=== PATIENT | male | born 1960 | race Caucasian/White ===

== ENCOUNTER 2020-05-13 10:01 | Observation (INO) | payer OTHER, SELFPAY ==
[2020-05-13] VITALS (10 sets, daily range): BP systolic 118–179; BP diastolic 70–80; PULSE 60–68; RESP 18; TEMP 36.6–36.9; O2SAT 96–99; BMI 24.4
--- NOTE | 2020-05-13 10:22 | ED_ITS ---
HPI - Chest Pain General Chief Complaint: Chest Pain Stated Complaint: chest pain Time Seen by Provider: 05/13/20 10:22 Source: patient Mode of arrival: ambulatory Limitations: no limitations History of Present Illness HPI narrative: Intermittent chest pain for the past 6 days intermittent substernal, a few seconds. Patient with history of DVT still on xarelto. Today the pain was radiating up into the jaw complaint: chest discomfort Onset (ago): day(s) Timing of current episode: episodic Onset: during rest Pain radiation: neck and jaw/teeth Severity: mild Quality: sharp Relieving factors: rest Related Data Allergies Allergy/AdvReac Type Severity Reaction Status Date / Time No Known Allergies Allergy Verified 05/13/20 10:29 [No Known Allergies*] Review of Systems Constitutional: Constitutional: Reports no additional constitutional complaints Eyes: Eyes: Reports no additional eye complaints ENT: Denies dizziness Cardiovascular: Cardiovascular: Reports no additional cardiovascular complaints Respiratory: Respiratory: Reports as per HPI Gastrointestinal: Gastrointestinal: Reports no additional gastrointestinal complaints Musculoskeletal: Musculoskeletal: Reports no additional musculoskeletal complaints Integumentary/Breasts: Skin/Breast: Denies rash Neurologic: Reports system reviewed and no additional complaints, except as documented, Denies dizziness and Denies Sensory deficit (Neuro) Psychiatric: Psychiatric: Denies anxiety PMFSH Past Medical History Medical History DVT (deep venous thrombosis) Enlarged prostate Hypertension Social History Social History Alcohol intake: current Alcohol intake frequency: 0-2 drinks per day Smoking Status: Never smoker Use of substances other than those prescribed or required for medical reasons: No Advance Directives: No Advance Directives Information Provided: No Physical Exam Vital Signs: Vital Signs: Last Vital Signs Temp 98.4 F 05/13/20 10:26 Pulse 60 05/13/20 11:43 Resp 18 05/13/20 11:08 BP 136/77 05/13/20 11:43 Pulse Ox 98 05/13/20 10:26 Body Mass Index 24.4 Const: General: healthy appearing Nutritional Appearance: average body habitus Orientation/consciousness: oriented to person and patient oriented x3 Limitations: no limitations HENMT: Head: Yes normal to inspection Ears: external ears normal General nose exam: Normal external nose present Mouth: Normal oral and palatal mucosa present and oropharynx normal Throat: Yes posterior oropharynx normal Eyes: General: appearance normal, both eyes and all related structures Neck: Other: supple Neck: Yes normal visual inspection Chest: Chest palpation & inspection: normal inspection of the chest Resp: Auscultation: clear to auscultation bilaterally Cardio: Jugular venous distension: no JVD Rate: regular rate Rhythm: regular rhythm Heart sounds: S1 normal heart sound present and S2 normal heart sound present GI: Inspection: Yes normal to inspection Palpation (GI): Soft to palpation, nontender and No hepatosplenomegaly present Auscultation: normal bowel sounds : General: Yes no CVA tenderness Back/Spine/Pelvis: Back: no CVA tenderness Skin: General skin exam: no rashes or lesions noted Neuro: General: oriented to person and patient oriented x3 Cranial nerves: Yes CN's II-XII intact bilaterally Motor exam (neuro): 5/5 motor strength present throughout Sensory Exam: No Sensory deficit (Neuro) Extrem: General: Yes normal to inspection Psych: Appearance: grossly normal Course Course Course Narrative: Patient improved with nitro. HEART score is a 5, despite negative troponin, will repeat troponin however will likely admit for observation MDM - Chest Pain MDM Narrative Medical decision making narrative: Discussed with Hospitalist with intermediate HEART score will admit Differential Diagnosis Differential diagnosis: Likely unstable angina pectoris and chest pain Lab Data Result diagrams: 05/13/20 10:43 05/13/20 10:43 Labs: Lab Results 05/13/20 05/13/20 05/13/20 Range/Units 10:43 10:43 10:43 WBC 5.5 (4.8-10.8) X10*3/uL RBC 4.38 L (4.60-5.80) X10*6/uL Hgb 13.4 L (14.0-18.0) g/dl Hct 38.1 L (42-52) % MCV 87.0 (80-98) fL MCH 30.6 (27.0-33.0) pg MCHC 35.2 (31.0-36.0) g/dl RDW 12.3 (11.0-16.0) % Plt Count 194 (160-400) X10*3/uL MPV 9.7 (9.4-12.4) fL Immature Gran % (Auto) 0.5 H (0.0-0.4) % Neut % (Auto) 71.3 (45-73) % Lymph % (Auto) 18.8 L (20-40) % [place] % (Auto) 8.5 (2-11) % Eos % (Auto) 0.7 (0-4) % Baso % (Auto) 0.2 (0-2) % Lymph # (Auto) 1.0 L (1.2-4.9) X10*3/uL [place] # (Auto) 0.5 (0.1-1.2) X10*3/uL Eos # (Auto) 0.0 (0.0-0.4) X10*3/uL Baso # (Auto) 0.0 (0.0-0.2) X10*3/uL Abs Immat Gran (auto) 0.03 (0.00-0.03) X10*3/uL Absolute Neuts (auto) 3.9 (2.0-8.3) X10*3/uL Absolute Nucleated RBC 0.000 (0.0-0.012) X10*3/uL Nucleated RBC % (auto) 0.0 (0.0-0.2) /100WBC Sodium 138 (135-145) mmol/L Potassium 4.1 (3.3-5.1) mmol/l Chloride 106 (96-108) mmol/L Carbon Dioxide 23 (22-29) mmol/L Anion Gap 13 (12-20) BUN 16 (9-16) mg/dL Creatinine 0.89 (0.5-1.4) mg/dL Estim Creat Clear Calc 96.8 Estimated GFR > 60 Random Glucose 99 (60-115) mg/dL Calcium 9.0 (8.4-10.2) mg/dL Troponin I High Sens < 3.5 (<3.5-35.0) ng/L Imaging Data Chest x-ray: Radiologist's impression: right base atelectasis ECG Data ECG #1: Attestation: I personally reviewed and interpreted this ECG as follows: Interpretation: sinus 60, slight st depression laterally V4-V6 Discharge Plan Discharge Clinical Impression: Chest pain Patient Disposition: Admitted As Inpatient
--- NOTE | 2020-05-13 10:28 | ECG_ITS ---
Test Reason : CP Blood Pressure : / mmHG Vent. Rate : 059 BPM Atrial Rate : 059 BPM P-R Int : 210 ms QRS Dur : 098 ms QT Int : 416 ms P-R-T Axes : 063 002 031 degrees QTc Int : 411 ms Sinus bradycardia with 1st degree A-V block Possible Left atrial enlargement RSR' or QR pattern in V1 suggests right ventricular conduction delay Nonspecific ST abnormality Abnormal ECG No previous ECGs available Referred By: Bryan Marie Electronically Signed By:BLANE COVARRUBIAS MD
--- NOTE | 2020-05-13 10:29 | XR_ITS ---
EXAMINATION: XR CHEST CLINICAL INFORMATION: Chest pain COMPARISON: None TECHNIQUE: Frontal view of the chest was obtained. FINDINGS: The cardiac and mediastinal contours are normal. There is atelectasis or small infiltrate at the right lung base. The lungs are otherwise clear. There is no pleural effusion or pneumothorax. Bony structures are unremarkable. XR/XR chest 1V IMPRESSION: Atelectasis or small infiltrate at the right lung base.
[2020-05-13] MEDS: Aspirin Enteric Coated 81 MG TABLET.DR 162 MG PO (10:44)
[2020-05-13] MEDS: Nitroglycerin 0.4 MG TAB.SUBL SUBLINGUAL ×2 (10:47→11:07)
--- NOTE | 2020-05-13 10:52 | PC.NURSE ---
Patient arrives complaining of intermittent chest pain. Reports this morning pain became more constant and sharp. Patient is well appearing and ambulates with a balanced and steady gait. Respirations regular and even. Skin PWD. Left ankle swelling per patient due to prior DVT. Alert and oriented. Dr. Marie at bedside to assess. EKG obtained, IV established, and labs drawn. Patient placed on diagnostic cardiac sonographer. Medicated with ASA and Nitro. Tolerated well. will continue to monitor, awaiting results.
[2020-05-13 10:54] LABS: MANUAL DIFF FLAG NO
[2020-05-13 11:02] LABS: Basophils Percent Auto 0.2 % (0-2); Eosinophils Percent Auto 0.7 % (0-4); Hematocrit 38.1 % (42-52); Hemoglobin 13.4 g/dl (14.0-18.0); Imm Gran Abs Auto 0.03 X10*3/uL (0.00-0.03); Imm Gran Pct Auto 0.5 % (0.0-0.4); Lymphocytes Percent Auto 18.8 % (20-40); Mean Corpuscular HGB Conc 35.2 g/dl (31.0-36.0); Mean Corpuscular Hemoglobin 30.6 pg (27.0-33.0); Mean Platelet Volume 9.7 fL (9.4-12.4); Monocytes Absolute Auto 0.5 X10*3/uL (0.1-1.2); Monocytes Percent Auto 8.5 % (2-11); Neutrophils Absolute Auto 3.9 X10*3/uL (2.0-8.3); Neutrophils Percent Auto 71.3 % (45-73); Platelet Count 194 X10*3/uL (160-400); Red Blood Count 4.38 X10*6/uL (4.60-5.80); Red Cell Distribution Width 12.3 % (11.0-16.0); White Blood Count 5.5 X10*3/uL (4.8-10.8)
--- NOTE | 2020-05-13 11:06 | PC.NURSE ---
PATIENT PLACED ON ELECTROSTATIC PAINTER , EKG OBTAINED AND VIEWED BY PROVIDER . RN AT BEDSIDE PATIENT ORIENTED TO ROOM, CALL RICHARDS GIVEN
[2020-05-13 11:22] LABS: Anion Gap 13 (12-20); Blood Urea Nitrogen 16 mg/dL (9-16); Carbon Dioxide 23 mmol/L (22-29); Chloride 106 mmol/L (96-108); Creatinine Clr Calc Pharmacy 96.8; Estimated Glomerular Filt Rate > 60; Glucose Random 99 mg/dL (60-115); Potassium 4.1 mmol/l (3.3-5.1); Sodium 138 mmol/L (135-145)
[2020-05-13 11:26] LABS: Troponin-I High Sensitivity < 3.5 ng/L (<3.5-35.0)
[2020-05-13] MEDS: Nitroglycerin 2 % Oint 1 GM Packet 1 INCH TRANSDERMA (11:43)
--- NOTE | 2020-05-13 11:46 | PC.NURSE ---
Patient reporting pain is improved and now 0/10. Respirations remain regular and even. Skin PWD. Placed nitro paste. Patient aware of plan of care for admission. Awaiting further orders.
--- NOTE | 2020-05-13 12:01 | PM.IMHP ---
History of Present Illness Date of Service: 05/13/20 Chief Complaint: Chest pain 59 year male with HTN, BPH, history of DVT of left leg 7 years ago and is on Xarelto. He presents with chest pain onset a week ago. Pain is intermittent, can be sharp for few and sometime pressure. At worst 6/10. He has not been taking any meds for this. He was at work today at a [employer] when he experienced the pain and was advised to come to ED so he drove himself to the ED. In ED given Nitro x 2 with improvement and is pain free now. No associated shortness of breath, nasuea or vomitting or diaphoresis. Highly sensitive troponin is normal. ECG sinus kaveh with first degree AVB Review of Systems Review of Systems: Gen: no fever Resp: no sob, no cough CV: + chest, no CASTELLANO, no leg edema GI: No n/v, no abd pain Neuro: No confusion Yes all other systems are reviewed and are negative [facility] Medical History DVT (deep venous thrombosis) Enlarged prostate Hypertension Functional capacity: independent ambulation Pertinent family history: mother of stroke in her 90s Social History (Updated 05/13/20 @ 12:17 by Francisco Blackmon MD) Alcohol intake: current Alcohol intake frequency: 0-2 drinks per day Smoking Status: Never smoker Use of substances other than those prescribed or required for medical reasons: No Advance Directives: No Advance Directives Information Provided: No Meds Allergies Allergy/AdvReac Type Severity Reaction Status Date / Time No Known Allergies Allergy Verified 05/13/20 10:29 [No Known Allergies*] Physical Exam Vital Signs and Narrative: Vital Signs: Last Vital Signs Temp 98.4 F 05/13/20 10:26 Pulse 60 05/13/20 11:43 Resp 18 05/13/20 11:08 BP 136/77 05/13/20 11:43 Pulse Ox 98 05/13/20 10:26 Body Mass Index 24.4 Constitutional Awake and Alert, No apparent distress Neck Supple, No lymphadenopathy Cardiovascular RRR, No M/R/G, S1 S2, No S3 S4, No pedal edema Respiratory Lungs clear, No respiratory distress Gastrointestinal Non tender, Non-distended Skin No rash Neurological Alert & oriented x3 Psychological Appropriate affect Results Labs CBC and Chem 7: 05/13/20 10:43 05/13/20 10:43 Labs: Laboratory Results - last 24 hr 05/13/20 05/13/20 05/13/20 10:43 10:43 10:43 MCV 87.0 MCH 30.6 MCHC 35.2 RDW 12.3 Plt Count 194 MPV 9.7 Immature Gran % (Auto) 0.5 H Neut % (Auto) 71.3 Lymph % (Auto) 18.8 L [place] % (Auto) 8.5 Eos % (Auto) 0.7 Baso % (Auto) 0.2 Lymph # (Auto) 1.0 L [place] # (Auto) 0.5 Eos # (Auto) 0.0 Baso # (Auto) 0.0 Abs Immat Gran (auto) 0.03 Absolute Neuts (auto) 3.9 Absolute Nucleated RBC 0.000 Nucleated RBC % (auto) 0.0 Anion Gap 13 Estim Creat Clear Calc 96.8 Estimated GFR > 60 Random Glucose 99 Calcium 9.0 Troponin I High Sens < 3.5 Imaging Radiologist's Impressions: Impressions Chest X-Ray 05/13/20 10:29 IMPRESSION: Atelectasis or small infiltrate at the right lung base. Assessment and Plan (1) Chest pain: Qualifiers: Chest pain type: precordial pain Qualified Code(s): R07.2 - Precordial pain Status: Acute (2) DVT (deep venous thrombosis): Status: Acute (3) Enlarged prostate: Status: Acute (4) Hypertension: Status: Acute 59 year old male with HTN, h/o of DVT on Xarelto here with chest pain--atypical pattern, no ischemic changes on ECG and normal troponin I but got relief with Nitro 1. Chest pain--doubt ACS -Observe -repeat trop -Cardiology input 2. HTN--continue Atenolol and Norvasc 3. BPH--continue Finesteride 4. h/o Left Leg DVT--Continue Xarelto Full Code DVT prophylaxis: Xarelto
--- NOTE | 2020-05-13 12:06 | PC.NURSE ---
hospitalist at bedside for eval.
--- NOTE | 2020-05-13 12:24 | PC.NURSE ---
pharmacy at bedside for med rec
[2020-05-13 12:48] LABS: COVID-19 Test Negative (Negative); IDNOW Serial# 9DD0AD1C
--- NOTE | 2020-05-13 13:26 | PC.NURSE ---
Patient continues to feel no further pain. Respirations remain regular and even. Skin PWD. Awaiting admission orders.
--- NOTE | 2020-05-13 13:50 | PC.NURSE ---
Report given to C RN. Patient continues to do well, awaiting transfer.
[2020-05-13] MEDS: 0.9 % Sodium Chloride Flush 3 ML SYRINGE IVFLUSH ×2 (15:18→22:26)
[2020-05-13] MEDS: Acetaminophen 325 MG TABLET 650 MG PO (16:23)
--- NOTE | 2020-05-13 16:49 | PC.NURSE ---
Pt to floor from ED. walked with steady gait and able to answer admission qestions. Only c/o chest pain rating 2/10 and headache which he was given tylenol for. No other complaints
[2020-05-13 23:01] LABS: Troponin-I High Sensitivity < 3.5 ng/L (<3.5-35.0)
[2020-05-14] VITALS (9 sets, daily range): BP systolic 119–185; BP diastolic 67–91; PULSE 64–80; RESP 18–20; TEMP 36.6–37.1; O2SAT 95–98
--- NOTE | 2020-05-14 | CA_ITS ---
Acquisition Time: 2020-05-14 12:39:08 Total Exercise Time: 00:07:12 Test Indications: Chest Pain Medications: Protocol: JAG Max HR: 139 BPM 86% of Pred: 160 BPM Max BP: 192/062 mmHG Max Work Load: 8.8 METS Exercise stress test using Jag protocol, total of 7 min 12 sec. METS 8.8, THR up to 86%. Pt tolerated well, denies any anginal sx., feeling of fatigue and mild SOB. BP up to 192/62, however it normalized in recovery. Pt received amlodipine and atenonol this am at 09:25. EKG with no arrhythmias, upsloping ST depressions seen laterally and inferiorly and horizontal depressions seen anteriorly. Test reviewed with Dr. Hwang. Referred By: Annabelle Jimenez Overread By: Capo Bennett
[2020-05-14] MEDS: Acetaminophen 325 MG TABLET 650 MG PO (00:34)
[2020-05-14] MEDS: Finasteride 5 MG TABLET PO (09:45)
[2020-05-14] MEDS: Rivaroxaban 20 MG TABLET PO (09:45)
[2020-05-14] MEDS: atenoloL 25 MG TABLET PO ×2 (09:45→21:13)
[2020-05-14] MEDS: 0.9 % Sodium Chloride Flush 3 ML SYRINGE IVFLUSH ×2 (09:46→15:49)
[2020-05-14] MEDS: amLODIPine Besylate 5 MG TABLET PO ×2 (09:46→13:50)
--- NOTE | 2020-05-14 10:01 | P.DS_ITS ---
DS: Providers Provider Date of admission: 05/13/20 11:55 Primary care physician: Jay Correa Consults: 05/13/20 14:43 Consult to Cardiology Routine Consulting Provider[place] [facility] Reason for consultation: angina DS: Diagnosis Discharge Diagnosis (1) Chest pain: Status: Acute (2) DVT (deep venous thrombosis): Status: Acute (3) Enlarged prostate: Status: Acute (4) Hypertension: Status: Acute DS: Medications Discharge Medications Home Medications: Home Medications Medication Instructions Recorded Confirmed amlodipine 5 mg PO DAILY 05/13/20 05/13/20 atenolol 25 mg PO DAILY 05/13/20 05/13/20 finasteride 5 mg PO DAILY 05/13/20 05/13/20 rivaroxaban 20 mg PO DAILY 05/13/20 05/13/20 DS: Summary Hospital Course Hospital Course: Chief Complaint: Chest pain 59 year male with HTN, BPH, history of DVT of left leg 7 years ago and is on Xarelto. He presents with chest pain onset a week ago. Pain is intermittent, can be sharp for few and sometime pressure. At worst 6/10. He has not been taking any meds for this. He was at work today at a [employer] when he experienced the pain and was advised to come to ED so he drove himself to the ED. In ED given Nitro x 2 with improvement and is pain free now. No associated shortness of breath, nasuea or vomitting or diaphoresis. Highly sensitive troponin is normal. ECG sinus kaveh with first degree AVB Hospital course: Patient was admitted overnight and has not had further chest pain, troponin I have been normal x 2. He had ETT on 05/14/20 that show some ischemic changes, so the next step is to have cardiac cath which is being arranged for Wednesday05/21/20..Instruction has been given to him by the cardiology team. His med are being adjusted witn increase of Norvasc to 10 mg daily from 5 and Atenolol to 25 bid from 25 daily. Status at Discharge Functional status at discharge: independent ambulation Time Spent with Patient Time attestation: Total time spent providing and/or coordinating discharge services: Physical Exam Vital Signs: Vital Signs: Last Vital Signs Temp 97.8 F 05/14/20 08:00 Pulse 72 05/14/20 09:46 Resp 20 05/14/20 08:00 BP 146/73 H 05/14/20 09:46 Pulse Ox 97 05/14/20 08:00 Body Mass Index 24.4 General: AO X 3, no acute distress Resp: CTA bilateral CVS: S1,S2,RRR GI: +BS, NT, no distention Skin: No rash Neuro: motor grossly intact Psych: appropriate affect DS: Data Data Completed and Pending Labs on day of discharge: 05/13/20 10:28 ECG 12 lead EKG Stat EKG Documentation DIRECTED Aspirin Enteric Coated [Ecotrin] 162 mg PO ONCE ONE 05/13/20 10:29 XR chest 1V Stat 05/13/20 10:43 Basic Metabolic Panel Stat Complete Blood Count Auto Diff Stat Troponin-I High Sensitivity Stat 05/13/20 11:30 Nitroglycerin 2 % Oint [Nitro-Bid] 1 inch TRANSDERMA ONCE ONE 05/13/20 11:50 Transfer Order Routine 05/13/20 12:24 COVID-19 ID NOW ([facility]) Stat 05/13/20 22:17 Troponin-I High Sensitivity Stat Laboratory Last Values WBC 5.5 X10*3/uL (4.8-10.8) 05/13/20 10:43 RBC 4.38 X10*6/uL (4.60-5.80) L 05/13/20 10:43 Hgb 13.4 g/dl (14.0-18.0) L 05/13/20 10:43 Hct 38.1 % (42-52) L 05/13/20 10:43 MCV 87.0 fL (80-98) 05/13/20 10:43 MCH 30.6 pg (27.0-33.0) 05/13/20 10:43 MCHC 35.2 g/dl (31.0-36.0) 05/13/20 10:43 RDW 12.3 % (11.0-16.0) 05/13/20 10:43 Plt Count 194 X10*3/uL (160-400) 05/13/20 10:43 MPV 9.7 fL (9.4-12.4) 05/13/20 10:43 Immature Gran % (Auto) 0.5 % (0.0-0.4) H 05/13/20 10:43 Neut % (Auto) 71.3 % (45-73) 05/13/20 10:43 Lymph % (Auto) 18.8 % (20-40) L 05/13/20 10:43 [place] % (Auto) 8.5 % (2-11) 05/13/20 10:43 Eos % (Auto) 0.7 % (0-4) 05/13/20 10:43 Baso % (Auto) 0.2 % (0-2) 05/13/20 10:43 Lymph # (Auto) 1.0 X10*3/uL (1.2-4.9) L 05/13/20 10:43 [place] # (Auto) 0.5 X10*3/uL (0.1-1.2) 05/13/20 10:43 Eos # (Auto) 0.0 X10*3/uL (0.0-0.4) 05/13/20 10:43 Baso # (Auto) 0.0 X10*3/uL (0.0-0.2) 05/13/20 10:43 Abs Immat Gran (auto) 0.03 X10*3/uL (0.00-0.03) 05/13/20 10:43 Absolute Neuts (auto) 3.9 X10*3/uL (2.0-8.3) 05/13/20 10:43 Absolute Nucleated RBC 0.000 X10*3/uL (0.0-0.012) 05/13/20 10:43 Nucleated RBC % (auto) 0.0 /100WBC (0.0-0.2) 05/13/20 10:43 Sodium 138 mmol/L (135-145) 05/13/20 10:43 Potassium 4.1 mmol/l (3.3-5.1) 05/13/20 10:43 Chloride 106 mmol/L (96-108) 05/13/20 10:43 Carbon Dioxide 23 mmol/L (22-29) 05/13/20 10:43 Anion Gap 13 (12-20) 05/13/20 10:43 BUN 16 mg/dL (9-16) 05/13/20 10:43 Creatinine 0.89 mg/dL (0.5-1.4) 05/13/20 10:43 Estim Creat Clear Calc 96.8 05/13/20 10:43 Estimated GFR > 60 05/13/20 10:43 Random Glucose 99 mg/dL (60-115) 05/13/20 10:43 Calcium 9.0 mg/dL (8.4-10.2) 05/13/20 10:43 Troponin I High Sens < 3.5 ng/L (<3.5-35.0) 05/13/20 22:17 COVID-19 ([facility]) Negative (Negative) 05/13/20 12:24 COVID-19 Clin Com See Note 05/13/20 12:24 Discharge Plan Discharge Anticipated Discharge Date/Time: 05/14/20 10:02 Patient Disposition: Home, Self-Care Referrals: Jay Correa [Primary Care Provider] - Discharge Medications: Continued finasteride 5 mg tablet 5 mg PO DAILY RF: 0 rivaroxaban 20 mg Tablet 20 mg PO DAILY RF: 0 Changed atenolol 25 mg tablet 25 mg PO BID Qty: 0 RF: 0 amlodipine 5 mg tablet 10 mg PO DAILY Qty: 0 RF: 0 Discharge Orders: Discharge Order (Routine); Ordered 05/15/20 Ordered By: Francisco Blackmon Activity on Discharge: As tolerated Discharge Date/Time: 05/15/20 14:35 Visit Report Forms: Patient Portal Discharge page Care Plan Goals: rule out cardiac source of chest pain Health Concerns: no new concern at this time Plan of Treatment: Take your medications as recommended, note that Atenolol has been changed to 25 mg twice a day, previously once a day. Norvasc has been increased to 10 mg daily from 5 mg daiy. Follow cardiac catherterization instruction given to you by Dr. Hendricks and follow up your Doctor in a week.
--- NOTE | 2020-05-14 10:10 | MHC.CM.PN ---
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 Patient does have support from his son if needed. Patient does not have a HCP and declines filling one out today after education. Discussed discharge plan, home no service. Patient has his own car in the lot and will transport himself. CM will continue to follow patient for discharge needs.
--- NOTE | 2020-05-14 11:30 | PM.CNCAR ---
History of Present Illness History of Present Illness Date of Service: 05/14/20 Requesting physician: Francisco Anderson Consult reason: chest pain Chief complaint: chest pain Narrative: Ventura is a 59 yo male with PMH of HTN and DVT. He has no known Hx of CAD. Cardiac risk factors include HTN, prior smoking. He presented to [facility] yesterday with report of mid chest discomfort that had been intermittent over the last week. His discomfort was relieved with 2 NTG. Troponins were normal X2. EKG SR, 1st degree avb, nonspecific ST abnormality. CXR showed alterlectasis/ small infiltrate right base. BP elevated initially at 179/70. Today he reports that he is feeling well. He has had no recurrent CP episodes. He describes getting a mid chest pressure while at work over the last week. He did not get symptoms on the weekend. At work he does lifting and pulling activities. His BP at home has been mildly elevated. He has had similar chest feelings in the past but now more frequent in the last week. Does not get CP with walking, climbing stairs, resting. No associated symptoms. No tenderness to palpation of chest area. Complaint with his home medications. No recent med changes. Review of Systems Review of Systems: Yes all other systems are reviewed and are negative ENT: Denies dizziness Cardiovascular: Cardiovascular: Denies chest pain at rest, Denies Epigastric Pain, Denies syncope, Denies claudication, Denies lightheadedness, Denies radiating jaw, neck or arm pain, Denies palpitations, Denies dyspnea on exertion and Denies orthopnea Respiratory: Respiratory: Denies chest congestion, Denies cough, Denies pain on inspiration and Denies dyspnea on exertion Gastrointestinal: Gastrointestinal: Reports no additional gastrointestinal complaints and Denies abdominal pain Musculoskeletal: Musculoskeletal: Reports no additional musculoskeletal complaints Neurologic: Reports system reviewed and no additional complaints, except as documented, Denies dizziness, Denies syncope and Denies Sensory deficit (Neuro) Endocrine: Endocrine: Denies palpitations PMFSH Past Medical History Medical History DVT (deep venous thrombosis) Enlarged prostate Hypertension Functional capacity: independent ambulation Family History Family History Mother HTN (hypertension) Brother HTN (hypertension) Surgical History Surgical History History of hernia repair Social History Social History (Updated 05/14/20 @ 11:38 by JANETTE Johnson) Alcohol intake: current Alcohol intake frequency: 0-2 drinks per day Smoking Status: Former smoker Smoking Quit Date: quit 6 years ago Use of substances other than those prescribed or required for medical reasons: No Advance Directives: No Advance Directives Information Provided: No service: No Current occupational status: employed Meds Allergies Allergy/AdvReac Type Severity Reaction Status Date / Time No Known Allergies Allergy Verified 05/13/20 10:29 [No Known Allergies*] Home Medications Medication Instructions Recorded Confirmed Type amlodipine 5 mg PO DAILY 05/13/20 05/13/20 History atenolol 25 mg PO DAILY 05/13/20 05/13/20 History finasteride 5 mg PO DAILY 05/13/20 05/13/20 History rivaroxaban 20 mg PO DAILY 05/13/20 05/13/20 History Physical Exam Vital Signs: Vital Signs: Last Vital Signs Temp 97.8 F 05/14/20 08:00 Pulse 72 05/14/20 09:46 Resp 20 05/14/20 08:00 BP 146/73 H 05/14/20 09:46 Pulse Ox 97 05/14/20 08:00 Body Mass Index 24.4 Const: General: cooperative, healthy appearing, no acute distress, alert and awake Orientation/consciousness: patient oriented x3 HENMT: Head: Yes normal to inspection Neck: Neck: Yes normal visual inspection and Yes no JVD Resp: Effort & Inspection: normal respiratory effort, able to speak in complete sentences and not labored Auscultation: clear to auscultation bilaterally, no crackles, no rales, no rhonchi and no wheezes Cardio: Palpation: normal PMI Rate: regular rate Rhythm: regular rhythm Heart sounds: S1 normal heart sound present and S2 normal heart sound present Peripheral pulses: Peripheral pulses 2+ throughout GI: Inspection: Yes normal to inspection Neuro: General: patient oriented x3 Sensory Exam: No Sensory deficit (Neuro) Extrem: General: Yes normal to inspection and No edema Results Labs and Meds Result diagrams: 05/13/20 10:43 05/13/20 10:43 Lab results: Laboratory Results - last 24 hr 05/13/20 05/13/20 12:24 22:17 Troponin I High Sens < 3.5 COVID-19 ([facility]) Negative COVID-19 Clin Com See Note Assessment and Plan (1) Chest pain: Qualifiers: Chest pain type: precordial pain Qualified Code(s): R07.2 - Precordial pain Status: Acute Admit with CP which has some typical and atypical features. EKG SR with nonspecific ST/ T abn. Troponins normal. Cardiac risk HTN, prior smoking. Did get relief of his pain from NTG on admit. BP was elevated as well, which may have contributed. No recurrent pain since admit. Will check ETT. If normal, he can be discharged from a cardiology perspective. We will arrange for outpt cardiology follow up. (2) Hypertension: Status: Acute BP elevated this admit. On atenolol and amlodipine at home and in hospital. Will increase Amlodipine to 10mg daily.
[2020-05-15] VITALS: BP 118/67; PULSE 59; RESP 16; TEMP 37; O2SAT 95
[2020-05-15] MEDS: 0.9 % Sodium Chloride Flush 3 ML SYRINGE IVFLUSH ×2 (00:30→09:25)
[2020-05-15 03:48] VITALS: BP 128/78; PULSE 58; RESP 16; TEMP 36.4; O2SAT 98
[2020-05-15 07:32] VITALS: BP 132/81; PULSE 53; RESP 18; TEMP 37.1; O2SAT 96
[2020-05-15 09:25] VITALS: BP 133/75; PULSE 67
[2020-05-15] MEDS: Finasteride 5 MG TABLET PO (09:25)
[2020-05-15] MEDS: Rivaroxaban 20 MG TABLET PO (09:25)
[2020-05-15] MEDS: amLODIPine Besylate 10 MG TABLET PO (09:25)
[2020-05-15] MEDS: atenoloL 25 MG TABLET PO (09:25)
[2020-05-15 09:41] LABS: INTERNATIONAL NORM RATIO 1.2 (0.9-1.1); Prothrombin Time 14.8 SEC (10.8-13.0)
[2020-05-15 10:03] LABS: Anion Gap 10 (12-20); Blood Urea Nitrogen 17 mg/dL (9-16); Calcium 8.6 mg/dL (8.4-10.2); Carbon Dioxide 28 mmol/L (22-29); Chloride 106 mmol/L (96-108); Creatinine Clr Calc Pharmacy 95.8; Estimated Glomerular Filt Rate > 60; Glucose Random 146 mg/dL (60-115); Potassium 4.2 mmol/l (3.3-5.1); Sodium 140 mmol/L (135-145)
--- NOTE | 2020-05-15 10:11 | PM.PNCARD ---
Subjective Subjective Date of Service: 05/15/20 Principal diagnosis: CP, abnormal stress test Interval history: Cardiology follow up for CP. Today he reports feeling good. He has not had any recurrent CP since admit. He denies sob, palpitation. Ambulates steady in room without difficulty. Review of Systems Review of Systems Yes all other systems are reviewed and are negative Eyes: Reports no additional eye complaints Denies dizziness Cardiovascular: Denies chest pain, Denies chest pain at rest, Denies chest pain with activity, Denies syncope and Denies dyspnea on exertion Respiratory: Denies chest congestion, Denies cough, Denies hemoptysis, Denies pain on inspiration and Denies dyspnea on exertion Gastrointestinal: Reports no additional gastrointestinal complaints and Denies abdominal pain Musculoskeletal: Reports no additional musculoskeletal complaints Reports system reviewed and no additional complaints, except as documented, Denies confusion, Denies dizziness, Denies syncope and Denies Sensory deficit (Neuro) Psychiatric: Denies confusion Physical Exam Vital Signs: Last Vital Signs Temp 98.7 F 05/15/20 07:32 Pulse 67 05/15/20 09:25 Resp 18 05/15/20 07:32 BP 133/75 05/15/20 09:25 Pulse Ox 96 05/15/20 07:32 Body Mass Index 24.4 Const General: No confusion Orientation/consciousness: No confusion HENMT Head: Yes normal to inspection Neck Neck: Yes normal visual inspection and Yes no JVD Resp Effort & Inspection: normal respiratory effort, able to speak in complete sentences and not labored Auscultation: clear to auscultation bilaterally, no crackles, no rales, no rhonchi and no wheezes Cardio Palpation: normal PMI Rate: regular rate Rhythm: regular rhythm Heart sounds: S1 normal heart sound present and S2 normal heart sound present Peripheral pulses: Peripheral pulses 2+ throughout GI Inspection: Yes normal to inspection Skin General skin exam: no rashes or lesions noted Neuro General: No confusion Sensory Exam: No Sensory deficit (Neuro) Extrem General: Yes normal to inspection and No edema Results Labs and Meds Result diagrams: 05/13/20 10:43 05/15/20 09:07 Lab results: Laboratory Results - last 24 hr 05/15/20 05/15/20 09:07 09:07 PT 14.8 H INR 1.2 H Sodium 140 Potassium 4.2 Chloride 106 Carbon Dioxide 28 Anion Gap 10 L BUN 17 H Creatinine 0.90 Estim Creat Clear Calc 95.8 Estimated GFR > 60 Random Glucose 146 H D Calcium 8.6 Progress Note: A&P Assessment and plan (1) Chest pain: Status: Acute Assessment and Plan: Admit with episodes of CP occurring at work. Did get relief from NTG SL. No recurrent pain since admit. He ruled out for ACS. Did have ETT yesterday and EKGs show ischemic changes. He did not get CP with stress test exercise. Discussed case with Dr Hendricks. Pt seems to have stable angina. BP initially elevated. His home amlodipine and atenolol doses were increased. He will continue these as 2 antianginal agents. He will not be started on aspirin as he is on Xarelto. Spent time with pt going over test results and recommendation for cardiac cath procedure, including risks of bleeding, infection, RNEET[place], [place]/ CVA. He is agreeable to proceed. Our office will make outpt cardiac cath arrangements for 05/21. Once arrangements made and explained to pt, he may be discharged from a cardiology perspective. Instructed on light activity until cath procedure. Remain out of work. ED care if needed for recurrent CP episodes. He states understanding. Will obtain BMP, PT/ INR today for preop eval. (2) Hypertension: Status: Acute Assessment and Plan: Atenolol has been increased to 50mg daily and Amlodipine increased to 10mg daily this admit. BP 132/81 this am. (3) Abnormal stress ECG: Status: Acute (4) Stable angina: Status: Acute Fall Risk Details Current Medications: Current Medications Generic Name Dose Route Start Last Admin Trade Name Stormy PRN Reason Stop Dose Admin Acetaminophen 650 mg 05/13/20 16:06 05/14/20 00:34 Acetaminophen 325 Mg Tablet PO 650 mg Q6H PRN Administration Pain, Mild (Pain Scale 1-3) Amlodipine Besylate 10 mg 05/15/20 09:00 05/15/20 09:25 Amlodipine Besylate 10 Mg Tablet PO 10 mg DAILY MARY JO Administration Protocol Atenolol 25 mg 05/14/20 21:00 05/15/20 09:25 Atenolol 25 Mg Tablet PO 25 mg BID MARY JO Administration Protocol Finasteride 5 mg 05/14/20 09:25 05/15/20 09:25 Finasteride 5 Mg Tablet PO 5 mg DAILY MARY JO Administration Nitroglycerin 0.4 mg 05/13/20 10:30 05/13/20 11:07 Nitroglycerin 0.4 Mg Tab.Subl SUBLINGUAL 1 1000units Q5M PRN Administration Chest Pain Pharmacy Consult 1 each 05/13/20 11:55 Consult Rx Perform Med Rec MISCELLANE ONCE PRN Consult order Rivaroxaban 20 mg 05/14/20 09:25 05/15/20 09:25 Rivaroxaban 20 Mg Tablet PO 20 mg DAILY MARY JO Administration Sodium Chloride 3 ml 05/13/20 16:00 05/15/20 09:25 0.9 % Sodium Chloride Flush 3 Ml Syringe IVFLUSH 3 ml QSHIFT MARY JO Administration Time Spent With Patient Time: Total time spent is greater than 50% in coordination of care (as documented) at patient's floor/unit and/or counseling patient: Time with patient: 15 - 24 minutes
[2020-05-15 10:50] VITALS: BP 140/73; PULSE 50; RESP 18; TEMP 36.7; O2SAT 96
[2020-05-15 12:06] LABS: Cholesterol 172 mg/dL; HDL Cholesterol 57 mg/dL; LDL Cholesterol Calculated 104 mg/dl; Triglycerides 58 mg/dL
--- NOTE | 2020-05-15 12:21 | MHC.CM.PN ---
DC TODAY NO SERVICES SELF TRANSPORT. PT WILL f/u OUT PATIENT CARDIAC CATH.
== END 2020-05-15 14:35 | disposition home or self-care (01) ==
LOC: HO.ED 11:53 → HO.IMC 12:22
PROVIDERS: Internal Medicine Cardiovascular Disease; Nurse Practitioner Family; Admitting Provider Internal Medicine; Emergency Provider Emergency Medicine; PCP Hospitalist; Visit Provider Internal Medicine
DX: R07.2 Precordial pain (principal); I82.409 Acute embolism and thrombosis of unspecified deep veins of unspecified lower extremity; N40.0 Benign prostatic hyperplasia without lower urinary tract symptoms; I10 Essential (primary) hypertension; I20.8 Other forms of angina pectoris; R00.1 Bradycardia, unspecified; I44.0 Atrioventricular block, first degree; Z20.828 Contact with and (suspected) exposure to other viral communicable diseases; Z87.891 Personal history of nicotine dependence; Z79.02 Long term (current) use of antithrombotics/antiplatelets; Z79.899 Other long term (current) drug therapy
CPT/HCPCS: 36415; 71045; 80048; 80061; 84484; 85025; 85610; 87635; 93005; 93017; 99219; 99225; 99284; 99285

== ENCOUNTER → 2020-06-05 12:35 | Outpatient (BNVA) | payer OTHER, SELFPAY | PROVIDERS: PCP Hospitalist; Visit Provider Internal Medicine Cardiovascular Disease | DX: Z76.89 Persons encountering health services in other specified circumstances (principal) ==

== ENCOUNTER → 2020-07-03 09:45 | Outpatient (BNVA) | payer OTHER, SELFPAY | PROVIDERS: PCP Hospitalist; Visit Provider Internal Medicine Cardiovascular Disease | DX: Z76.89 Persons encountering health services in other specified circumstances (principal) ==

== ENCOUNTER 2020-08-18 21:33 | Emergency (ER) | payer OTHER, SELFPAY ==
[2020-08-18 21:43] VITALS: BP 172/80; PULSE 60; RESP 16; TEMP 36.6; O2SAT 100; BMI 28.2
--- NOTE | 2020-08-18 21:53 | ED.CHESTPAIN ---
HPI - Chest Pain General Chief Complaint: Chest Pain Stated Complaint: Chest pain Time Seen by Provider: 08/18/20 21:53 Source: patient Mode of arrival: ambulatory Limitations: no limitations History of Present Illness HPI narrative: Patient with history of hypertension came here for chest pain started 2 days ago got worse earlier today while walking. Patient does get chest pain off and on almost every 2nd or 3rd day for last 3 months had cardiac catheterization done on 05/21/2020 which showed normal coronaries patient's Xarelto for left leg DVT. Patient denies any nausea/shortness of breath. No cough no radiation of pain no syncope no palpitation no diaphoresis patient pain is similar to pain when he gets in the past MD complaint: chest pain Onset (ago): day(s) (2) Timing of current episode: episodic Prior episodes: Yes Onset: during exertion Pain location: substernal Pain radiation: none Severity: mild Quality: dull Relieving factors: nothing Exacerbating factors: exertion Treatment prior to arrival: none Risk Factors Coronary artery disease risk factors: hypertension Related Data Home Medications Medication Instructions Recorded Confirmed finasteride 5 mg PO DAILY 05/13/20 06/05/20 rivaroxaban 20 mg PO DAILY 05/13/20 06/05/20 cholecalciferol (vitamin D3) 25 25 mcg PO DAILY 06/05/20 06/05/20 mcg (1,000 unit) capsule Previous Rx's Medication Instructions Recorded amlodipine 10 mg PO DAILY #0 tab 05/15/20 atenolol 25 mg PO BID #0 tab 05/15/20 hydrochlorothiazide 25 mg tablet 25 mg PO DAILY #60 tab 07/29/20 Allergies Allergy/AdvReac Type Severity Reaction Status Date / Time No Known Allergies Allergy Verified 08/18/20 21:43 [No Known Allergies*] Review of Systems Review of Systems: Constitutional : No Weight loss, No Fever, No Chills ENT/Mouth : No sore throat, No Rhinorrhea Eyes: No Eye Pain, No Swelling Cardiovascular : ++ Chest Pain, no palpitations Respiratory : No Cough, No Sputum, no shortness of breath Gastrointestinal : no Nausea, No Vomiting, No Diarrhea, No abdominal Pain, no black stools Genitourinary : No Dysuria, No Urinary Frequency Musculoskeletal : No joint pain, No Myalgias, No Joint Swelling Skin : No Skin Lesions, No rash Neuro : No Weakness, No Numbness, No Dizziness, No Headache Psych : No Anxiety/Panic, No Depression Heme/Lymph: No Bruising, No Lymphadenopathy Endocrine : No Polyuria, No Polydipsia All other systems reviewed and are negative [facility] Past Medical History Medical History Abnormal stress ECG DVT (deep venous thrombosis) Enlarged prostate Hypertension Surgical History H/O cardiac catheterization History of hernia repair Family History Family History Mother HTN (hypertension) Brother HTN (hypertension) Social History Social History Alcohol intake: current Alcohol intake frequency: 0-2 drinks per day Smoking Status: Former smoker Advance Directives: No Advance Directives Information Provided: Yes service: No Current occupational status: employed Physical Exam Vital Signs: Vital Signs: Last Vital Signs Temp 97.9 F 08/18/20 21:43 Pulse 58 08/18/20 22:15 Resp 14 08/18/20 22:15 BP 149/79 H 08/18/20 22:15 Pulse Ox 98 08/18/20 22:15 Body Mass Index 28.2 Appearance: Alert. Oriented X3. No acute distress. Anxious Eyes: Pupils equal, round and reactive to light. ENT: Pharynx normal. Neck: Normal inspection. Neck supple. CVS: Normal heart rate and rhythm. Pulses normal. Respiratory: No respiratory distress. Breath sounds normal. Abdomen: Soft and nontender. Bowel sounds are present, no mass palpable, no CVA tenderness Skin: Skin warm and dry. Normal skin color. Normal skin turgor. Extremities: No lower extremity edema. Neuro: Oriented X 3. No motor deficit. No sensory deficit. MDM - Chest Pain MDM Narrative Medical decision making narrative: Patient with atypical chest pain already had cardiac catheterization in 06/09 which was totally negative , EKG without any EKG changes high sensitive troponin also negative patient seems very anxious says that his blood pressure was 170/100 at home and patient does get this pain every 2-3 days repeat blood pressure was 149/79 patient pain is atypical likely from anxiety Differential Diagnosis Differential diagnosis: Likely stable angina and atypical chest pain Medical Records Data Attestation: I reviewed the patient's medical records. Lab Data Attestation: I reviewed the patient's lab results. Result diagrams: 08/18/20 22:00 08/18/20 22:00 Labs: Lab Results 08/18/20 08/18/20 08/18/20 Range/Units 22:00 22:00 22:00 WBC 6.3 (4.8-10.8) X10*3/uL RBC 4.51 L (4.60-5.80) X10*6/uL Hgb 13.7 L (14.0-18.0) g/dl Hct 39.0 L (42-52) % MCV 86.5 (80-98) fL MCH 30.4 (27.0-33.0) pg MCHC 35.1 (31.0-36.0) g/dl RDW 12.4 (11.0-16.0) % Plt Count 194 (160-400) X10*3/uL MPV 9.5 (9.4-12.4) fL Immature Gran % (Auto) 0.3 (0.0-0.4) % Neut % (Auto) 56.7 (45-73) % Lymph % (Auto) 31.3 (20-40) % Josephine % (Auto) 9.4 (2-11) % Eos % (Auto) 2.1 (0-4) % Baso % (Auto) 0.2 (0-2) % Lymph # (Auto) 2.0 (1.2-4.9) X10*3/uL Josephine # (Auto) 0.6 (0.1-1.2) X10*3/uL Eos # (Auto) 0.1 (0.0-0.4) X10*3/uL Baso # (Auto) 0.0 (0.0-0.2) X10*3/uL Abs Immat Gran (auto) 0.02 (0.00-0.03) X10*3/uL Absolute Neuts (auto) 3.6 (2.0-8.3) X10*3/uL Absolute Nucleated RBC 0.000 (0.0-0.012) X10*3/uL Nucleated RBC % (auto) 0.0 (0.0-0.2) /100WBC PT 14.7 H (10.8-13.0) SEC INR 1.2 H (0.9-1.1) Sodium 140 (135-145) mmol/L Potassium 3.8 (3.3-5.1) mmol/L Chloride 102 (96-108) mmol/L Carbon Dioxide 28 (22-29) mmol/L Anion Gap 14 (12-20) BUN 16 (9-16) mg/dL Creatinine 0.96 (0.5-1.4) mg/dL Estim Creat Clear Calc 96.3 Estimated GFR > 60 Random Glucose 112 (60-115) mg/dL Calcium 9.2 D (8.4-10.2) mg/dL Troponin I High Sens (<3.5-35.0) ng/L 08/18/20 Range/Units 22:00 WBC (4.8-10.8) X10*3/uL RBC (4.60-5.80) X10*6/uL Hgb (14.0-18.0) g/dl Hct (42-52) % MCV (80-98) fL MCH (27.0-33.0) pg MCHC (31.0-36.0) g/dl RDW (11.0-16.0) % Plt Count (160-400) X10*3/uL MPV (9.4-12.4) fL Immature Gran % (Auto) (0.0-0.4) % Neut % (Auto) (45-73) % Lymph % (Auto) (20-40) % Josephine % (Auto) (2-11) % Eos % (Auto) (0-4) % Baso % (Auto) (0-2) % Lymph # (Auto) (1.2-4.9) X10*3/uL Josephine # (Auto) (0.1-1.2) X10*3/uL Eos # (Auto) (0.0-0.4) X10*3/uL Baso # (Auto) (0.0-0.2) X10*3/uL Abs Immat Gran (auto) (0.00-0.03) X10*3/uL Absolute Neuts (auto) (2.0-8.3) X10*3/uL Absolute Nucleated RBC (0.0-0.012) X10*3/uL Nucleated RBC % (auto) (0.0-0.2) /100WBC PT (10.8-13.0) SEC INR (0.9-1.1) Sodium (135-145) mmol/L Potassium (3.3-5.1) mmol/L Chloride (96-108) mmol/L Carbon Dioxide (22-29) mmol/L Anion Gap (12-20) BUN (9-16) mg/dL Creatinine (0.5-1.4) mg/dL Estim Creat Clear Calc Estimated GFR Random Glucose (60-115) mg/dL Calcium (8.4-10.2) mg/dL Troponin I High Sens < 3.5 (<3.5-35.0) ng/L ECG Data ECG #1: Attestation: I personally reviewed and interpreted this ECG as follows: Interpretation: Sinus bradycardia heart rate 56 beats per minute normal intervals normal axis nonspecific ST T wave changes no acute ischemia Discharge Plan Discharge Clinical Impression: Atypical chest pain Patient Disposition: Home, Self-Care Instructions: Chest Pain (ED) Additional Instructions: Your pain is unlikely coming from the heart. Follow-up with financial wellness coach/PCP Continue medications as prescribed by financial wellness coach Prescriptions: No Action hydrochlorothiazide 25 mg tablet 25 mg PO DAILY Qty: 60 RF: 3 finasteride 5 mg tablet 5 mg PO DAILY RF: 0 rivaroxaban 20 mg Tablet 20 mg PO DAILY RF: 0 atenolol 25 mg tablet 25 mg PO BID Qty: 0 RF: 0 amlodipine 5 mg tablet 10 mg PO DAILY Qty: 0 RF: 0 cholecalciferol (vitamin D3) 25 mcg (1,000 unit) capsule 25 mcg PO DAILY RF: 0
[2020-08-18 21:55] VITALS: PULSE 64
--- NOTE | 2020-08-18 21:58 | ECG_ITS ---
Test Reason : CHEST PAIN Blood Pressure : / mmHG Vent. Rate : 056 BPM Atrial Rate : 056 BPM P-R Int : 184 ms QRS Dur : 102 ms QT Int : 424 ms P-R-T Axes : 011 014 014 degrees QTc Int : 409 ms Sinus bradycardia Nonspecific ST abnormality Abnormal ECG When compared with ECG of 13-MAY-2020 10:35, No significant change was found Referred By: Adriel Chirinos Electronically Signed By:ARABELLA JOEL
[2020-08-18 22:05] LABS: MANUAL DIFF FLAG NO
[2020-08-18 22:06] LABS: Basophils Percent Auto 0.2 % (0-2); Eosinophils Absolute Auto 0.1 X10*3/uL (0.0-0.4); Eosinophils Percent Auto 2.1 % (0-4); Hemoglobin 13.7 g/dl (14.0-18.0); Imm Gran Abs Auto 0.02 X10*3/uL (0.00-0.03); Imm Gran Pct Auto 0.3 % (0.0-0.4); Lymphocytes Percent Auto 31.3 % (20-40); Mean Corpuscular HGB Conc 35.1 g/dl (31.0-36.0); Mean Corpuscular Hemoglobin 30.4 pg (27.0-33.0); Mean Corpuscular Volume 86.5 fL (80-98); Mean Platelet Volume 9.5 fL (9.4-12.4); Monocytes Absolute Auto 0.6 X10*3/uL (0.1-1.2); Monocytes Percent Auto 9.4 % (2-11); Neutrophils Absolute Auto 3.6 X10*3/uL (2.0-8.3); Neutrophils Percent Auto 56.7 % (45-73); Platelet Count 194 X10*3/uL (160-400); Red Blood Count 4.51 X10*6/uL (4.60-5.80); Red Cell Distribution Width 12.4 % (11.0-16.0); White Blood Count 6.3 X10*3/uL (4.8-10.8)
[2020-08-18 22:15] VITALS: BP 149/79; PULSE 58; RESP 14; O2SAT 98
[2020-08-18 22:31] LABS: Troponin-I High Sensitivity < 3.5 ng/L (<3.5-35.0)
[2020-08-18 22:37] LABS: Anion Gap 14 (12-20); Blood Urea Nitrogen 16 mg/dL (9-16); Calcium 9.2 mg/dL (8.4-10.2); Carbon Dioxide 28 mmol/L (22-29); Chloride 102 mmol/L (96-108); Creatinine Clr Calc Pharmacy 96.3; Estimated Glomerular Filt Rate > 60; Glucose Random 112 mg/dL (60-115); Potassium 3.8 mmol/L (3.3-5.1); Sodium 140 mmol/L (135-145)
[2020-08-18 22:44] LABS: INTERNATIONAL NORM RATIO 1.2 (0.9-1.1); Prothrombin Time 14.7 SEC (10.8-13.0)
== END 2020-08-18 23:30 | disposition home or self-care (01) ==
PROVIDERS: Emergency Provider Internal Medicine
DX: R07.89 Other chest pain (principal); I10 Essential (primary) hypertension; Z87.891 Personal history of nicotine dependence; Z86.718 Personal history of other venous thrombosis and embolism; Z79.899 Other long term (current) drug therapy
CPT/HCPCS: 36415; 80048; 84484; 85025; 85610; 93005; 99284

== ENCOUNTER → 2020-09-04 10:09 | Outpatient (BNVA) | payer OTHER, SELFPAY | PROVIDERS: Visit Provider Internal Medicine Cardiovascular Disease ==

== ENCOUNTER 2020-09-11 15:56 | Outpatient (REF) | payer OTHER, SELFPAY ==
[2020-09-11 18:35] LABS: Anion Gap 15 (12-20); Blood Urea Nitrogen 17 mg/dL (9-16); Carbon Dioxide 28 mmol/L (22-29); Chloride 104 mmol/L (96-108); Estimated Glomerular Filt Rate > 60; Glucose Random 81 mg/dL (60-115); Potassium 4.3 mmol/L (3.3-5.1); Sodium 143 mmol/L (135-145)
== END 2020-09-11 15:57 | disposition home or self-care (01) ==
LOC: HO.LAB 15:56
PROVIDERS: PCP Hospitalist; Visit Provider Internal Medicine Cardiovascular Disease
DX: I10 Essential (primary) hypertension (principal)
CPT/HCPCS: 36415; 80048

== ENCOUNTER → 2020-09-19 12:15 | Outpatient (BNVA) | payer OTHER, SELFPAY | PROVIDERS: PCP Hospitalist; Visit Provider Internal Medicine Cardiovascular Disease ==

== ENCOUNTER 2020-10-04 15:43 | Outpatient (REF) | payer OTHER, SELFPAY ==
--- NOTE | 2020-10-04 17:24 | PFT_ITS ---
INDICATION: Chest discomfort. SPIROMETRY: FEV1 to FVC 74% with an FEV1 of 3.48 L, which is 91% predicted and an FVC of 4.72 L, which is 92% predicted. No significant response to bronchodilators noted. Maximum voluntary ventilation 125% predicted. LUNG VOLUMES: Total lung capacity 103% predicted with residual volume 124% predicted. DIFFUSION CAPACITY: DLCO 66% predicted. COMPARISONS: None. INTERPRETATION: No obstructive nor restrictive ventilatory defects identified. No significant response to bronchodilators noted. Normal maximum voluntary ventilation. Lung volumes do demonstrate a trend of air trapping. In addition to that, the patient does have an isolated mild diffusion impairment, therefore need to consider underlying etiologies such as anemia and/or pulmonary vascular conditions, which can result in the isolated diffusion impairment. Clinical correlation warranted. Naveen Rizzo MD MR/MODL / [id number]
== END 2020-10-04 15:44 | disposition home or self-care (01) ==
LOC: HO.RESP 15:43
PROVIDERS: Visit Provider Internal Medicine Cardiovascular Disease
DX: R07.9 Chest pain, unspecified (principal)
CPT/HCPCS: 94060; 94727; 94729

== ENCOUNTER → 2020-11-07 15:08 | Outpatient (BNVA) | payer OTHER, SELFPAY | PROVIDERS: PCP Hospitalist; Visit Provider Internal Medicine Pulmonary Disease ==

== ENCOUNTER → 2020-12-19 14:57 | Outpatient (BNVA) | payer OTHER, SELFPAY | PROVIDERS: PCP Hospitalist; Referring Provider Hospitalist; Visit Provider Nurse Practitioner Family ==

== ENCOUNTER → 2021-01-20 12:46 | Outpatient (BNVA) | payer OTHER, SELFPAY | PROVIDERS: PCP Hospitalist; Referring Provider Hospitalist; Visit Provider Internal Medicine Cardiovascular Disease ==

== ENCOUNTER → 2021-07-07 13:29 | Outpatient (BNVA) | payer OTHER, SELFPAY | PROVIDERS: PCP Hospitalist; Referring Provider Internal Medicine; Visit Provider Internal Medicine Cardiovascular Disease | DX: I10 Essential (primary) hypertension (principal); R07.9 Chest pain, unspecified | CPT/HCPCS: 93005; 99212 ==

== ENCOUNTER 2021-08-21 06:40 | Outpatient (REF) | payer OTHER, SELFPAY ==
[2021-08-21 11:16] LABS: Hemoglobin 13.4 g/dl (14.0-18.0); Mean Corpuscular HGB Conc 33.5 g/dl (31.0-36.0); Mean Corpuscular Hemoglobin 30.1 pg (27.0-33.0); Mean Corpuscular Volume 89.9 fL (80.0-98.0); Mean Platelet Volume 10.6 fL (9.4-12.4); Platelet Count 202 X10*3/uL (160-400); Red Blood Count 4.45 X10*6/uL (4.60-5.80); Red Cell Distribution Width 12.9 % (11.0-16.0)
[2021-08-21 11:35] LABS: Alanine Aminotransferase 23 U/L (0-40); Albumin Level 4.3 g/dL (3.5-5.0); Alkaline Phosphatase 46 U/L (39-117); Anion Gap 11 (12-20); Aspartate Amino Transferase 27 U/L (5-37); Bilirubin Total 1.3 mg/dL (0.0-1.0); Blood Urea Nitrogen 16 mg/dL (9-16); Calcium 9.6 mg/dL (8.4-10.2); Carbon Dioxide 30 mmol/L (22-29); Chloride 106 mmol/L (96-108); Cholesterol 204 mg/dL; Estimated Glomerular Filt Rate > 60; Glucose Fasting 104 mg/dL (60-99); HDL Cholesterol 59 mg/dL; Iron 116 mcg/dL (45-160); LDL Cholesterol Calculated 129 mg/dl; Percent Iron Saturation 39 % (15-50); Potassium 4.9 mmol/L (3.3-5.1); Sodium 142 mmol/L (135-145); Total Iron Binding Capacity 297 mcg/dL (228-428); Total Protein 7.1 g/dL (6.5-8.0); Triglycerides 81 mg/dL; Unsaturated Iron Binding 181 ug/dL
[2021-08-21 11:59] LABS: Ferritin 614 ng/mL (20-250); Prostate Specific Antigen Scr 0.91 ng/mL (<0.05-4.0); TSH reflex Free T4 1.44 uIU/mL (0.32-4.0)
[2021-08-21 12:12] LABS: Folate 11.7 ng/mL (> or = 4.0); Vitamin B12 840 pg/mL (200-900)
== END 2021-08-21 06:41 | disposition home or self-care (01) ==
LOC: HO.HMGCLDS 06:40
PROVIDERS: Visit Provider Internal Medicine
DX: I10 Essential (primary) hypertension (principal); Z12.5 Encounter for screening for malignant neoplasm of prostate
CPT/HCPCS: 36415; 80053; 80061; 82607; 82728; 82746; 83540; 84153; 84443; 85027

== ENCOUNTER 2021-08-29 07:52 | Outpatient (REF) | payer OTHER, SELFPAY ==
[2021-08-29 12:36] LABS: C Reactive Protein 0.14 mg/dL (< or = 0.50)
== END 2021-08-29 07:53 | disposition home or self-care (01) ==
LOC: HO.HMGCLDS 07:52
PROVIDERS: Visit Provider Internal Medicine
DX: R79.89 Other specified abnormal findings of blood chemistry (principal)
CPT/HCPCS: 36415; 81256; 86140

== ENCOUNTER 2021-12-19 10:00 | Outpatient (RCR) | payer OTHER, SELFPAY ==
--- NOTE | 2021-11-26 11:58 | MHC.PT.EP ---
[facility] [place] [facility] [place] [facility] [place] Office [address] Jorge Luis Sharma [address] [phone] F: [phone] F: [phone] F: [phone] F: [phone] Physical Therapy Plan of Care Date of Evaluation: Date of Surgery: n/a Diagnosis: rotator cuff pain R shoulder Assessment: Patient is a 61 year old male presenting to PT with complaints of pain in his R shoulder. Pt reports onset of pain began about 1 month ago due to insidious onset. He presents today with impairments in pain, posture, and periscapular strength. 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 Pt expresses snf goal of reducing pain, and is motivated to work towards this in PT. Clinical presentation today is most consistent with signs and sx associated with possible tendonitis and pt will benefit from skilled PT to address the following problems and impairments noted upon evaluation: pain, posture, and periscapular strength. These problems limit the patient with the following functional activities: reaching, lifting, ADLs. The prescribed treatment plan of care is medically necessary. Co-morbidities of hx DVT still taking blood thinners and HTN were identified and taken into considerations of plan of care. Pt was educated on HEP, role of PT, prognosis, POC. Frequency and Duration: The patient will be seen 2 x week x 4 weeks Short Term Goals: Pt will demonstrate improved periscapular strength as evidence by less winging of his scapulas B in 2 weeks. Pt will demonstrate improved postural awareness by sitting with biomechanically correct posture without cues throughout session to improve overall postural function in 2 weeks. Pt will demonstrate min to no pain with IR ROM in 2 weeks. Senior Living Goals: Pt will demonstrate improved SPADI score by 13 points in 4 weeks for improved functional mobility. Pt will demonstrate improved ability to complete reaching and lifting ADLs with min to no pain in 4 weeks for return to PLOF. Treatment Plan: Modalities to reduce pain, spasms and effusion. Manual therapy to restore motion and function. Therapeutic exercise to improve strength and flexibility. Neuromuscular re-education for posture and balance. Therapeutic activities to return to functional activities of daily living. Electronically signed by: Vickie Milligan, PT, DPT, ATC Please sign and return to therapist. Thank you for your referral.
--- NOTE | 2021-12-19 11:37 | MHC.PT.DC ---
[facility] [place] Office [place] Office [place] Office [address] Sharma [address] [phone] F: [phone] F: [phone] F: [phone] F: [phone] Physical Therapy Discharge Report Diagnosis: rotator cuff pain R shoulder Date of Surgery: n/a Date of Evaluation: 11/26/21 Date of Discharge: 12/19/21 Treatments to Date: 8 Cancellations to Date: 0 No Shows to Date: 0 Discharge Status: Achieved Goals Improved Function Independent with HEP Discharge Summary: Pt has made good progress since beginning skilled PT. He is no longer having pain with most activities and has met the majority of his goals at this time. 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 At this time max benefits of PT have been provided and skilled PT is no longer indicated. Pt is in agreement with d/c today. Electronically signed by: Vickie Milligan, PT, DPT, ATC Please sign and return to therapist. Thank you for your referral.
== END 2021-12-19 11:40 | disposition home or self-care (01) ==
LOC: HO.PTCHIC 10:00
PROVIDERS: PCP Internal Medicine; Visit Provider Internal Medicine
DX: S46.011A Strain of muscle(s) and tendon(s) of the rotator cuff of right shoulder, initial encounter (principal)
CPT/HCPCS: 97110; 97140; 97161

== ENCOUNTER → 2022-02-24 13:22 | Outpatient (BNVA) | payer OTHER, SELFPAY | PROVIDERS: PCP Internal Medicine; Referring Provider Internal Medicine; Visit Provider Nurse Practitioner Family | DX: I10 Essential (primary) hypertension (principal); R07.9 Chest pain, unspecified; Z98.890 Other specified postprocedural states | CPT/HCPCS: 99212 ==

== ENCOUNTER 2022-09-04 07:02 | Outpatient (REF) | payer OTHER, SELFPAY ==
[2022-09-04 12:53] LABS: MANUAL DIFF FLAG NO
[2022-09-04 13:01] LABS: Basophils Percent Auto 0.2 % (0-2); Eosinophils Absolute Auto 0.1 X10*3/uL (0.0-0.4); Eosinophils Percent Auto 1.1 % (0-4); Hematocrit 40.9 % (42.0-52.0); Hemoglobin 13.7 g/dl (14.0-18.0); Imm Gran Abs Auto 0.03 X10*3/uL (0.00-0.03); Imm Gran Pct Auto 0.6 % (0.0-0.4); Lymphocytes Absolute Auto 1.6 X10*3/uL (1.2-4.9); Lymphocytes Percent Auto 30.8 % (20-40); Mean Corpuscular HGB Conc 33.5 g/dl (31.0-36.0); Mean Corpuscular Volume 89.5 fL (80.0-98.0); Mean Platelet Volume 11.6 fL (9.4-12.4); Monocytes Absolute Auto 0.5 X10*3/uL (0.1-1.2); Monocytes Percent Auto 9.6 % (2-11); Neutrophils Absolute Auto 3.1 x10*3/uL (2.0-8.3); Neutrophils Percent Auto 57.7 % (45-73); Platelet Count 209 X10*3/uL (160-400); Red Blood Count 4.57 X10*6/uL (4.60-5.80); Red Cell Distribution Width 13.2 % (11.0-16.0); White Blood Count 5.3 X10*3/uL (4.8-10.8)
[2022-09-04 14:03] LABS: Alanine Aminotransferase 18 U/L (0-40); Albumin Level 4.2 g/dL (3.5-5.0); Alkaline Phosphatase 50 U/L (39-117); Anion Gap 11 (12-20); Aspartate Amino Transferase 25 U/L (5-37); Bilirubin Total 1.1 mg/dL (0.0-1.0); Blood Urea Nitrogen 12 mg/dL (9-16); Carbon Dioxide 30 mmol/L (22-29); Chloride 108 mmol/L (96-108); Cholesterol 191 mg/dL; Estimated Glomerular Filt Rate > 60; Glucose Fasting 107 mg/dL (60-99); HDL Cholesterol 53 mg/dL; LDL Cholesterol Calculated 128 mg/dl; Potassium 4.5 mmol/L (3.3-5.1); Sodium 144 mmol/L (135-145); Total Protein 6.6 g/dL (6.5-8.0); Triglycerides 54 mg/dL
[2022-09-04 14:24] LABS: PSA,Total (Free>4and<10) 0.95 ng/mL (0.00-4.00)
== END 2022-09-04 07:03 | disposition home or self-care (01) ==
LOC: HO.HMGCLDS 07:02
PROVIDERS: PCP Internal Medicine; Visit Provider Internal Medicine
DX: Z00.00 Encounter for general adult medical examination without abnormal findings (principal); Z12.5 Encounter for screening for malignant neoplasm of prostate; I10 Essential (primary) hypertension
CPT/HCPCS: 36415; 80053; 80061; 84153; 85025

== ENCOUNTER 2022-09-11 11:28 | Outpatient (REF) | payer OTHER, SELFPAY ==
[2022-09-11 14:04] LABS: Appearance Urine Cloudy; Color Urine Yellow; Glucose Urine UA Negative (Negative); Leukocyte Esterase Urine Negative (Negative); Nitrite Urine Negative (Negative); PH 6.5 (5.0-9.0); Specific Gravity - Urine <= 1.005 (1.005-1.025); Urine Blood Negative (Negative); Urine Ketones Negative (Negative); Urine Protein Negative (Neg-Trace)
[2022-09-11 14:08] LABS: Bacteria Urine None Seen (None Seen); Hyaline Casts Urine 0-2 /LPF (0-2); RBC Urine 0-2 /HPF (0-2); Squamous Epithelial Cell Urine 0-2 /HPF (0-2); WBC Urine 0-5 /HPF (0-5)
== END 2022-09-11 11:29 | disposition home or self-care (01) ==
LOC: HO.HMGCLDS 11:28
PROVIDERS: PCP Internal Medicine; Visit Provider Internal Medicine
DX: R10.9 Unspecified abdominal pain (principal)
CPT/HCPCS: 81001

== ENCOUNTER 2022-09-17 10:14 | Outpatient (REF) | payer OTHER, SELFPAY ==
--- NOTE | ~2022-09-17 | US_ITS ---
EXAMINATION: US RETROPERITONEAL LIMITED (RENAL ONLY) CLINICAL INFORMATION: Unspecified abdominal pain-right flank pain. COMPARISON: None available. TECHNIQUE: Real-time imaging of the kidneys. FINDINGS: RIGHT KIDNEY: 11.7 x 6.3 x 4.9 cm (SAG x AP x TRV). The kidney is normal in size, contour, and echogenicity. Renal cortical thickness is normal. No calculi or focal parenchymal lesions. No hydronephrosis. LEFT KIDNEY: 11.1 x 4.2 x 4.2 cm (SAG x AP x TRV). The kidney is normal in size, contour, and echogenicity. Renal cortical thickness is normal. No renal calculi or focal parenchymal lesions. There is very mild hydronephrosis. BLADDER: Bilateral ureteral jets are demonstrated. US/US renal BI IMPRESSION: There is very mild left hydronephrosis. The examination is otherwise unremarkable.
== END 2022-09-17 10:15 | disposition home or self-care (01) ==
LOC: HO.HMGCX 10:14
PROVIDERS: PCP Internal Medicine; Visit Provider Internal Medicine
DX: R10.9 Unspecified abdominal pain (principal)
CPT/HCPCS: 76775

== ENCOUNTER 2023-02-25 09:50 | Outpatient (AMB) | payer OTHER, SELFPAY ==
--- NOTE | 2023-02-25 10:12 | MHC.OFFVIS ---
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 Today he reports he has been doing well over the last year with no concerning symptoms. He has not been experiencing chest discomfort more recently. No exertional symptoms. He walks routinely for exercise. He denies shortness of breath, palpitations, dizziness, presyncope, syncope, PND, orthopnea or edema. He is taking his medications as directed. No bleeding issues reported with his Xarelto. [facility] Medical History Elevated ferritin level Colon cancer screening Enlarged prostate DVT (deep venous thrombosis) Hypertension Surgical History H/O cardiac catheterization History of hernia repair Family History Mother HTN (hypertension) Brother HTN (hypertension) Prostate cancer Father No problems noted. Mother No problems noted. Social History Household Members Other:: divored, son, retired, Housing: House Alcohol intake: current Alcohol intake frequency: a few times a month Patient Tobacco Use Status: Former Tobacco user e-Cigarette/Vaping Use: Never Used service: No Current occupational status: employed Cognitive needs: No Hearing needs: No Vision needs: Yes Review of Systems Const All systems reviewed & are unremarkable except as noted in HPI and below ENT Denies dizziness Card Denies chest pain, Denies chest pain at rest, Denies chest pain with activity, Denies rapid heart rate, Denies pedal edema, Denies edema, Denies leg edema, Denies lightheadedness, Denies palpitations, Denies dyspnea, Denies dyspnea on exertion and Denies orthopnea Resp Denies cough, Denies dyspnea and Denies dyspnea on exertion GI Denies hematochezia and Denies change in stool character Musc Denies abnormal gait, Denies limited range of motion, Denies muscle cramps, Denies muscle weakness, Denies numbness, Denies radiating pain into limb, Denies stiffness and Denies tingling Neuro Denies abnormal gait, Denies dizziness, Denies numbness and Denies tingling Endo Denies palpitations Physical Exam Vital Signs: Last Vital Signs Pulse 51 02/25/23 10:13 BP 132/80 02/25/23 10:13 BMI result Body Mass Index 30.4 Const General: cooperative, healthy appearing, comfortable and no acute distress Orientation/consciousness: patient oriented x3 Neck Neck: Yes normal visual inspection Resp Effort & Inspection: normal respiratory effort Auscultation: clear to auscultation bilaterally, no crackles, no rales, no rhonchi and no wheezes Cardio Jugular venous distension: no JVD Rate: regular rate Rhythm: regular rhythm Heart sounds: S1 normal heart sound present, S2 normal heart sound present, no gallops, no murmurs and no rubs Neuro General: patient oriented x3 Extrem General: Yes normal to inspection and No no pedal edema Psych Appearance: grossly normal Mental Status: mental status grossly normal Speech and movement: Normal speech and movement present Office Procedures EKG Details: Today, read by me, sinus bradycardia, rate 51, QTC 4 5 milliseconds, no acute ST or T-wave abnormalities. [id number], Complete Assessment & Plan Assessment & Plan (1) Hypertension: Comment: Stable Code(s): I10 - Essential (primary) hypertension Qualifiers: Hypertension type: essential hypertension Qualified Code(s): I10 - Essential (primary) hypertension Plan: History of hypertension. Currently controlled on atenolol, amlodipine, hydrochlorothiazide, Aldactone. Labs done 09/04/2022 show creatinine 1.08, potassium 4.5. Blood pressure well controlled at this time. No med changes made. The importance of good blood pressure control reviewed with him. Discussed low-salt diet, activity as tolerated and weight management. He will continue to follow with his PCP. Cardiology follow-up as needed. (2) Chest pain: Comment: negative cardiac cath 2019 Code(s): R07.9 - Chest pain, unspecified Qualifiers: Chest pain type: unspecified Qualified Code(s): R07.9 - Chest pain, unspecified Plan: Prior Reports of intermittent nonexertional squeezing in chest, brief without pattern. He did undergo a cardiac catheterization 05/21/2020 which showed normal coronary arteries. This symptom was not an anginal discomfort. His prior abnormal stress test was felt to be related to uncontrolled high blood pressure. Chest discomfort has resolved at this time. No further testing warranted. The importance of good blood pressure control reviewed (3) H/O cardiac catheterization: Comment: 06/2019 nl coronaries Code(s): Z98.890 - Other specified postprocedural states (4) Sinus bradycardia: Code(s): R00.1 - Bradycardia, unspecified Plan: EKG done today showing sinus bradycardia, rate 51, asymptomatic. He reports good activity tolerance. He is on atenolol 25 mg daily. Can continue on that dose. Coding Level of Care Code Est Pt Level 3 (54751) Diagnoses Essential hypertension I10 Hypertension type: essential hypertension Chest pain, unspecified type R07.9 Chest pain type: unspecified H/O cardiac catheterization Z98.890 Sinus bradycardia R00.1 CPT Codes EKG - CPT: [id number], Complete ([id number])
[2023-02-25 10:13] VITALS: BP 132/80; PULSE 51; BMI 30.4
== END 2023-02-25 10:42 | disposition home or self-care (01) ==
PROVIDERS: PCP Internal Medicine; Referring Provider Internal Medicine; Visit Provider Nurse Practitioner Family
DX: I10 Essential (primary) hypertension (principal); R07.9 Chest pain, unspecified; Z98.890 Other specified postprocedural states; R00.1 Bradycardia, unspecified
CPT/HCPCS: 93010; 99213

== ENCOUNTER → 2023-02-25 09:50 | Outpatient (BNVA) | payer OTHER, SELFPAY | PROVIDERS: PCP Internal Medicine; Referring Provider Internal Medicine; Visit Provider Nurse Practitioner Family | DX: R00.1 Bradycardia, unspecified (principal); I10 Essential (primary) hypertension; R07.9 Chest pain, unspecified; Z86.718 Personal history of other venous thrombosis and embolism; Z98.890 Other specified postprocedural states; Z79.01 Long term (current) use of anticoagulants | CPT/HCPCS: 93005; 99212 ==

== ENCOUNTER 2023-07-06 10:15 | Outpatient (REF) | payer OTHER, SELFPAY ==
--- NOTE | ~2023-07-06 | XR_ITS ---
EXAMINATION: XR LUMBOSACRAL SPINE CLINICAL INFORMATION: Sciatica. COMPARISON: None available. TECHNIQUE: Three views of the lumbosacral spine. FINDINGS: Examination demonstrates mild to moderate disc and facet degenerative change at L4-S1. Mild anterior osteophyte formation most notably at L2-L4. Vertebral body heights appear maintained. No spondylolysis or spondylolisthesis identified. No lytic or sclerotic bony lesion seen. Paraspinal soft tissues appear unremarkable. Surgical mesh projects over the left groin. XR/XR lumbar spine 2-3V IMPRESSION: Degenerative change.
== END 2023-07-06 10:16 | disposition home or self-care (01) ==
LOC: HO.HMGCX 10:15
PROVIDERS: PCP Internal Medicine; Visit Provider Internal Medicine
DX: M54.30 Sciatica, unspecified side (principal)
CPT/HCPCS: 72100

== ENCOUNTER 2023-07-28 11:00 | Outpatient (RCR) | payer OTHER, SELFPAY ==
--- NOTE | 2023-06-30 11:56 | MHC.PT.EP ---
[facility] [place] Office [place] [facility] [place] [facility] [address] Jorge Luis Sharma [address] [phone] F: [phone] F: [phone] F: [phone] F: [phone] Physical Therapy Plan of Care Date of Evaluation: 06/30/23 Date of Surgery: Diagnosis: This is a 63 yo male presenting to skilled PT with a script for sciatica. Assessment: This is a 63 yo male presenting to skilled PT with a script for sciatica. Patient reporting pain for about 3 weeks now, pain began insidiously. His symptoms radiate from the R buttock down the lateral aspect of the leg to the ankle. Pain is described as sharp. Denies numbness or tingling and symptoms come and go. Pain increases with walking, standing, R side laying but improves with sitting. He called the PCP who prescribed him prednisone and referred to PT. He was not seen in their office, this was over the phone. He does see his PCP in August however. He ambulates normally at baseline and enjoys walking as a hobby however now using a single crutch as he is afraid to fall. Assessment reveals pain that ranges from up to a 7/10 at the worst. Patient demos decreased lumbar and R LE ROM, strength of R LE and core/back, TTP at R PSIS and R piri and demos s/s of SIJ involvement (most likely from using crutch which we talked about) and impaired posture with forward head and rounded shoulders, forward flexed trunk and impaired balance/gait deviations. Based on functional limitations, impaired QOL and pain tolerance patient is a good candidate for skilled PT 2x/wk for 4wks. Frequency and Duration: The patient will be seen 2x/wk for 4wk Short Term Goals: Pt will demonstrate improved postural awareness and understanding of core engagement with supine and standing tasks without cues throughout session to improve overall back safety in 2 weeks. Pt will demonstrate centralization of sx in 2 weeks. Pt will continue to reinforce precautions, sitting, standing and ADL modifications with proper body mechanics in 2 wks. Custodial Goals: Pt will demonstrate improved outcome measure by 5 points in 4 weeks for improved functional mobility. Pt will demonstrate ability to bend and lift WNL min to no pain for household tasks in 4 wks. Pt will be I in HEP and compliant in 4wks Treatment Plan: Modalities to reduce pain, spasms and effusion. Manual therapy to restore motion and function. Therapeutic exercise to improve strength and flexibility. Neuromuscular re-education for posture and balance. Therapeutic activities to return to functional activities of daily living. Electronically signed by: Tabitha Law, PT Please sign and return to therapist. Thank you for your referral.
--- NOTE | 2023-07-28 12:05 | MHC.PT.DC ---
[facility] [place] [facility] [place] [facility] [place] [facility] [address] Jorge Luis Sharma [address] [phone] F: [phone] F: [phone] F: [phone] F: [phone] Physical Therapy Discharge Report Diagnosis: This is a 63 yo male presenting to skilled PT with a script for sciatica. Date of Surgery: Date of Evaluation: 06/30/23 Date of Discharge: 07/28/23 Treatments to Date: 10 Cancellations to Date: 0 No Shows to Date: 0 Discharge Status: Achieved Goals Improved Function Independent with HEP Recommend MD Follow-up Discharge Summary: 07/28/23: Patient has improved his symptoms however he occasionally has leg symptoms when standing too long. He has improved his confidence, ROM and balance. He was instructed on DCing today and continuing HEP on his own as he does not seem to need skilled PT or require manual PT work any longer. He has plateaued in his progress but was educated to follow up with his PCP of his symptoms continue to linger over the next month. DC to HEP. Electronically signed by: Tabitha Law, PT Please sign and return to therapist. Thank you for your referral.
== END 2023-07-28 12:06 | disposition home or self-care (01) ==
LOC: HO.PTCHIC 11:00
PROVIDERS: PCP Internal Medicine; Visit Provider Internal Medicine
DX: M54.30 Sciatica, unspecified side (principal)
CPT/HCPCS: 97012; 97110; 97140; 97161

== ENCOUNTER 2023-10-06 07:38 | Outpatient (REF) | payer OTHER, SELFPAY ==
[2023-10-06 10:20] LABS: MANUAL DIFF FLAG NO
[2023-10-06 10:28] LABS: Basophils Percent Auto 0.2 % (0-2); Eosinophils Absolute Auto 0.1 X10*3/uL (0.0-0.4); Eosinophils Percent Auto 1.7 % (0-4); Hematocrit 41.4 % (42.0-52.0); Hemoglobin 14.3 g/dl (14.0-18.0); Imm Gran Abs Auto 0.03 X10*3/uL (0.00-0.03); Imm Gran Pct Auto 0.5 % (0.0-0.4); Lymphocytes Absolute Auto 1.8 X10*3/uL (1.2-4.9); Lymphocytes Percent Auto 30.4 % (20-40); Mean Corpuscular HGB Conc 34.5 g/dl (31.0-36.0); Mean Corpuscular Hemoglobin 29.9 pg (27.0-33.0); Mean Corpuscular Volume 86.4 fL (80.0-98.0); Monocytes Absolute Auto 0.6 X10*3/uL (0.1-1.2); Monocytes Percent Auto 9.5 % (2-11); Neutrophils Absolute Auto 3.3 x10*3/uL (2.0-8.3); Neutrophils Percent Auto 57.7 % (45-73); Platelet Count 195 X10*3/uL (160-400); Red Blood Count 4.79 X10*6/uL (4.60-5.80); White Blood Count 5.8 X10*3/uL (4.8-10.8)
[2023-10-06 10:38] LABS: Estimated Average Glucose 105 mg/dL; Hemoglobin A1c % 5.3 % (<6.0)
[2023-10-06 11:24] LABS: Alanine Aminotransferase 21 U/L (0-40); Albumin Level 4.3 g/dL (3.5-5.0); Alkaline Phosphatase 56 U/L (39-117); Anion Gap 9 (12-20); Aspartate Amino Transferase 30 U/L (5-37); Bilirubin Total 1.1 mg/dL (0.0-1.0); Blood Urea Nitrogen 15 mg/dL (9-16); Calcium 9.3 mg/dL (8.4-10.2); Carbon Dioxide 28 mmol/L (22-29); Chloride 109 mmol/L (96-108); Cholesterol 205 mg/dL (<200); Estimated Glomerular Filt Rate > 60; Glucose Fasting 112 mg/dL (60-99); HDL Cholesterol 62 mg/dL (>40); LDL Cholesterol Calculated 133 mg/dL (<100); Potassium 4.2 mmol/L (3.3-5.1); Sodium 142 mmol/L (135-145); Total Protein 7.1 g/dL (6.5-8.0); Triglycerides 51 mg/dL (<150)
== END 2023-10-06 07:39 | disposition home or self-care (01) ==
LOC: HO.HMGCLDS 07:38
PROVIDERS: PCP Internal Medicine; Visit Provider Internal Medicine
DX: Z00.00 Encounter for general adult medical examination without abnormal findings (principal); I10 Essential (primary) hypertension
CPT/HCPCS: 36415; 80053; 80061; 82306; 83036; 84153; 85025

== ENCOUNTER 2023-10-11 12:41 | Outpatient (AMB) | payer OTHER, SELFPAY ==
[2023-10-11 13:36] VITALS: BP 124/78; PULSE 60; O2SAT 96; BMI 31.9
--- NOTE | 2023-10-11 13:36 | MHC.PC.OV ---
Vital Signs 10/11/23 13:36 Height 5 ft 8 in Weight 210 lb BMI 31.9 BP 124/78 Blood Pressure Location Lt brachial Position Sitting Pulse 60 Pulse Source Pulse Oximeter Pulse Oximetry (%) 96 Oxygen Delivery Method Room Air Intake Visit Reasons: Annual PE Intake Note: Pt is here today for PE. Allergies No Known Allergies [No Known Allergies*] Allergy (Verified 10/11/23 13:37) Medication List - Last Reconciled 10/11/23 by Melissa Bishop MD amlodipine 5 mg PO DAILY atenolol 25 mg PO DAILY cholecalciferol (vitamin D3) 25 mcg PO DAILY hydrochlorothiazide 12.5 mg PO DAILY 90 days rivaroxaban (Xarelto) 20 mg PO DAILY Tobacco use date assessed: 10/11/23 Fall risk assessment: No Falls in past year Last assessed Fall Risk: 10/11/23 Dental Screening Dental Screen Date: 10/11/23 Did you have a dental visit in the last 12 months?: Yes Did you have a dental problem in the last 6 months where you did not have access to dental care?: No Was dental information given to patient?: Patient has dentist HPI Annual PE HPI Details Pt presents for PE. PFSH Medical History Elevated ferritin level Colon cancer screening Enlarged prostate DVT (deep venous thrombosis) Hypertension Surgical History H/O cardiac catheterization History of hernia repair Family History Mother HTN (hypertension) Brother HTN (hypertension) Prostate cancer Father No problems noted. Mother No problems noted. Social History Household Members Other:: divored, son, retired, Housing: House Alcohol intake: current Alcohol intake frequency: a few times a month Comment: PT SLEEPING Patient Tobacco Use Status: Former Tobacco user e-Cigarette/Vaping Use: Never Used service: No Current occupational status: employed Cognitive needs: No Hearing needs: No Vision needs: Yes Questionnaire PHQ-9 Over the last 2 weeks, how often have you been bothered by any of the following problems? 1. Little interest or pleasure in doing things: not at all 2. Feeling down, depressed, or hopeless: not at all 3. Trouble falling or staying asleep, or sleeping too much: not at all 4. Feeling tired or having little energy: not at all 5. Poor appetite or overeating: not at all 6. Feeling bad about yourself - or that you are a failure or have let yourself or your family down: not at all 7. Trouble concentrating on things, such as reading the newspaper or watching television: not at all 8. Moving or speaking so slowly that other people could have noticed. Or the opposite - being so fidgety or restless that you have been moving around a lot more than usual: not at all 9. Thoughts that you would be better off or of hurting yourself in some way: not at all Total score: 0 Depression Screening Interpretation: Negative Depression Screening Done: Yes Source: Developed by Drs. Ernesto Caelro, Gaby Daley, Alex Pittman and colleagues, with an educational alyssia from [employer]. Thrive Questionnaire Date Thrive assessed: 10/11/23 AUDIT C Alcohol Use Questionnaire (AUDIT-C) 1. How often do you have a drink containing alcohol?: Monthly or less 2. How many drinks containing alcohol do you have on a typical day when you are drinking?: 1 or 2 3. How often do you have six or more drinks on one occasion?: Never Total Score: 1 IDA-7 AMB Questionnaire IDA-7 Date IDA - 7 assessed: 10/11/23 Feeling nervous, anxious, or on edge: 0 = Not at all Not being able to stop or control worryin = Not at all Worrying too much about different things: 0 = Not at all Trouble relaxin = Not at all Being so restless that it is hard to sit still: 0 = Not at all Becoming easily annoyed or irritable: 0 = Not at all Feeling afraid as if something awful might happen: 0 = Not at all Total IDA-7 score (0-4 normal; 5-9 mild; 10-14 moderate; 15-21 severe): 0 Source: Developed by Drs. Ernesto Calero, Gaby Daley, Alex Pittman and colleagues, with an educational alyssia from [employer]. Review of Systems Const All systems reviewed & are unremarkable except as noted in HPI and below Reports no additional complaints Eyes Reports no additional complaints ENT Reports no additional complaints Card Reports no additional complaints Resp Reports no additional complaints GI Reports no additional complaints Physical exam (Primary Care) Vital Signs: Last Vital Signs Pulse 60 10/11/23 13:36 BP 124/78 10/11/23 13:36 Pulse Ox 96 10/11/23 13:36 Oxygen Delivery Method Room Air 10/11/23 13:36 BMI result Body Mass Index 31.9 Tobacco/Smoking Status: Tobacco use Status Tobacco use date assessed 10/11/23 10/11/23 13:37 Patient Tobacco Use Status Former Tobacco user 10/11/23 13:37 e-Cigarette/Vaping Use Never Used 10/11/23 13:37 PHQ-9: PHQ-9 Score PHQ-9: Total score 0 10/11/23 14:06 Depression Screening Interpretation: Negative Thrive Assessment: Date of Thrive Assessment Date Thrive assessed 10/11/23 10/11/23 14:06 Const General: no acute distress HENMT Head: Yes normal to inspection Ears: hearing grossly normal bilaterally General nose exam: Normal external nose present Mouth: Normal oral and palatal mucosa present Throat: Yes posterior oropharynx normal Neck Neck: Yes supple Resp Effort & Inspection: normal respiratory effort Auscultation: clear to auscultation bilaterally Cardio Rhythm: regular rhythm Heart sounds: S1 normal heart sound present and S2 normal heart sound present GI Inspection: Yes normal to inspection Palpation (GI): Soft to palpation Percussion: Yes normal to percussion Auscultation: normal bowel sounds Assessment and Plan Assessment & Plan (1) Hypertension: Comment: Stable Code(s): I10 - Essential (primary) hypertension Qualifiers: Hypertension type: essential hypertension Qualified Code(s): I10 - Essential (primary) hypertension Plan: Continue current medications (2) Annual physical exam: Code(s): Z00.00 - Encounter for general adult medical examination without abnormal findings Plan: Well-balanced diet regular exercise discussed with the patient. He had a negative Cologuard in 2022 and patient refuses colonoscopy (3) Hyperglycemia: Code(s): R73.9 - Hyperglycemia, unspecified Plan: ADA diet increase exercise weight loss discussed with the patient follow-up in 6 months with a fasting labs before including A1c Orders: Orders Comprehensive [place]. Panel Fast 6 Months I10 - Essential (primary) hypertension, R73.9 - Hyperglycemia, unspecified, Z00.00 - Encounter for general adult medical examination without abnormal findings Lipid Panel 6 Months I10 - Essential (primary) hypertension, R73.9 - Hyperglycemia, unspecified, Z00.00 - Encounter for general adult medical examination without abnormal findings Complete Blood Count Auto Diff 6 Months I10 - Essential (primary) hypertension, R73.9 - Hyperglycemia, unspecified, Z00.00 - Encounter for general adult medical examination without abnormal findings Hemoglobin A1c 6 Months I10 - Essential (primary) hypertension, R73.9 - Hyperglycemia, unspecified, Z00.00 - Encounter for general adult medical examination without abnormal findings Coding Level of Care Code Est Pt Prev Care 40-64y(37773) Diagnoses Essential hypertension I10 Hypertension type: essential hypertension Annual physical exam Z00.00 Hyperglycemia R73.9
== END 2023-10-11 14:34 | disposition home or self-care (01) ==
LOC: HO.HMGC 12:41
PROVIDERS: PCP Internal Medicine; Visit Provider Internal Medicine
DX: I10 Essential (primary) hypertension (principal); Z00.00 Encounter for general adult medical examination without abnormal findings; R73.9 Hyperglycemia, unspecified
CPT/HCPCS: 99396

== ENCOUNTER 2024-04-06 07:46 | Outpatient (REF) | payer OTHER, SELFPAY ==
[2024-04-06 10:13] LABS: MANUAL DIFF FLAG NO
[2024-04-06 10:18] LABS: Basophils Percent Auto 0.2 % (0-2); Eosinophils Absolute Auto 0.1 X10*3/uL (0.0-0.4); Eosinophils Percent Auto 1.7 % (0-4); Hematocrit 39.8 % (42.0-52.0); Hemoglobin 13.7 g/dl (14.0-18.0); Imm Gran Abs Auto 0.01 X10*3/uL (0.00-0.03); Imm Gran Pct Auto 0.2 % (0.0-0.4); Lymphocytes Absolute Auto 1.6 X10*3/uL (1.2-4.9); Lymphocytes Percent Auto 29.7 % (20-40); Mean Corpuscular HGB Conc 34.4 g/dl (31.0-36.0); Mean Corpuscular Hemoglobin 30.2 pg (27.0-33.0); Mean Corpuscular Volume 87.9 fL (80.0-98.0); Mean Platelet Volume 10.6 fL (9.4-12.4); Monocytes Absolute Auto 0.5 X10*3/uL (0.1-1.2); Monocytes Percent Auto 8.7 % (2-11); Neutrophils Absolute Auto 3.1 x10*3/uL (2.0-8.3); Neutrophils Percent Auto 59.5 % (45-73); Platelet Count 187 X10*3/uL (160-400); Red Blood Count 4.53 X10*6/uL (4.60-5.80); Red Cell Distribution Width 13.1 % (11.0-16.0); White Blood Count 5.3 X10*3/uL (4.8-10.8)
[2024-04-06 10:56] LABS: Alanine Aminotransferase 14 U/L (0-40); Albumin Level 4.4 g/dL (3.5-5.0); Alkaline Phosphatase 58 U/L (39-117); Anion Gap 12 (12-20); Aspartate Amino Transferase 22 U/L (5-37); Bilirubin Total 1.3 mg/dL (0.0-1.0); Blood Urea Nitrogen 14 mg/dL (9-16); Calcium 9.8 mg/dL (8.4-10.2); Carbon Dioxide 28 mmol/L (22-29); Chloride 109 mmol/L (96-108); Cholesterol 200 mg/dL (<200); Estimated Glomerular Filt Rate > 60; Glucose Fasting 100 mg/dL (60-99); HDL Cholesterol 65 mg/dL (>40); LDL Cholesterol Calculated 126 mg/dL (<100); Potassium 4.6 mmol/L (3.3-5.1); Sodium 144 mmol/L (135-145); Total Protein 7.1 g/dL (6.5-8.0); Triglycerides 45 mg/dL (<150)
[2024-04-06 11:05] LABS: Estimated Average Glucose 103 mg/dL; Hemoglobin A1C 111.2856 umol/L; Hemoglobin A1c % 5.2 % (<6.0); Total Hemoglobin (HGBA1C) 3387.0716 umol/L
== END 2024-04-06 07:47 | disposition home or self-care (01) ==
LOC: HO.HMGCLDS 07:46
PROVIDERS: PCP Internal Medicine; Visit Provider Internal Medicine
DX: Z00.00 Encounter for general adult medical examination without abnormal findings (principal); I10 Essential (primary) hypertension; R73.9 Hyperglycemia, unspecified
CPT/HCPCS: 36415; 80053; 80061; 83036; 85025

== ENCOUNTER 2024-04-10 09:25 | Outpatient (AMB) | payer OTHER, SELFPAY ==
[2024-04-10 09:27] VITALS: BP 128/76; PULSE 59; O2SAT 98; BMI 30.4
--- NOTE | 2024-04-10 09:27 | A.OFFPC_ITS ---
Vital Signs 04/10/24 09:27 Height 5 ft 8 in Weight 200 lb BMI 30.4 BP 128/76 Blood Pressure Location Rt brachial Position Sitting Pulse 59 Pulse Source Pulse Oximeter Pulse Oximetry (%) 98 Oxygen Delivery Method Room Air Intake Visit Reasons: 6 month follow up Intake Note: Pt is here today for 6 months follow up visit. Allergies hydrochlorothiazide Adverse Reaction (Intermediate, Verified 04/10/24 10:11) Abdominal Pain Medication List - Last Reconciled 04/10/24 by Melissa Bishop MD amlodipine 5 mg PO DAILY atenolol 25 mg PO DAILY cholecalciferol (vitamin D3) 25 mcg PO DAILY rivaroxaban (Xarelto) 20 mg PO DAILY Tobacco use date assessed: 04/10/24 Fall risk assessment: No Falls in past year Last assessed Fall Risk: 04/10/24 Dental Screening Dental Screen Date: 10/11/23 HPI 6 month follow up HPI Details Patient presents for the follow-up on hypertension controlled on current medications. He has been following ADA diet for hyperglycemia [facility] Medical History (Updated 10/11/23 @ 14:31 by Melissa Bishop MD) Elevated ferritin level Colon cancer screening Enlarged prostate DVT (deep venous thrombosis) Hypertension Surgical History H/O cardiac catheterization History of hernia repair Family History Mother HTN (hypertension) Brother HTN (hypertension) Prostate cancer Father No problems noted. Mother No problems noted. Social History Household Members Other:: divored, son, retired, Housing: House Alcohol intake: current Alcohol intake frequency: a few times a month Comment: PT SLEEPING Patient Tobacco Use Status: Former Tobacco user e-Cigarette/Vaping Use: Never Used service: No Current occupational status: employed Cognitive needs: No Hearing needs: No Vision needs: Yes Questionnaire PHQ-9 Over the last 2 weeks, how often have you been bothered by any of the following problems? 1. Little interest or pleasure in doing things: not at all 2. Feeling down, depressed, or hopeless: not at all 3. Trouble falling or staying asleep, or sleeping too much: not at all 4. Feeling tired or having little energy: not at all 5. Poor appetite or overeating: not at all 6. Feeling bad about yourself - or that you are a failure or have let yourself or your family down: not at all 7. Trouble concentrating on things, such as reading the newspaper or watching television: not at all 8. Moving or speaking so slowly that other people could have noticed. Or the opposite - being so fidgety or restless that you have been moving around a lot more than usual: not at all 9. Thoughts that you would be better off or of hurting yourself in some way: not at all Total score: 0 Depression Screening Interpretation: Negative Depression Screening Done: Yes 39407 - PHQ-9 Billing: Yes Source: Developed by Drs. Ernesto Calero, Gaby Daley, Alex Pittman and colleagues, with an educational alyssia from [employer]. Thrive Questionnaire Date Thrive assessed: 10/11/23 I am a: Patient What is your living situation today?: I have a steady place to live Within the past 12 months, did the food you bought not last and you didn't have the money to get more?: Often true Within the past 12 months, did you worry whether your food would run out before you got money to buy more?: Often true Do you have trouble paying for medicines?: No Do you have trouble getting transportation to medical appointments?: No Do you have trouble paying your heating and electricity bill?: No Do you have trouble taking care of your child, family member or friend?: No Do you have trouble with day-to-day activities such as bathing, preparing meals, shopping, managing finances, etc.?: No Are you currently unemployed and looking for a job?: No Are you interested in more education?: No Please select the resources that you would like help with: None Currently or been in a relationship where the following occur: I choose not to answer THRIVE Score: 2 AUDIT C Alcohol Use Questionnaire (AUDIT-C) 1. How often do you have a drink containing alcohol?: Monthly or less 2. How many drinks containing alcohol do you have on a typical day when you are drinking?: 1 or 2 3. How often do you have six or more drinks on one occasion?: Never Total Score: 1 IDA-7 AMB Questionnaire IDA-7 Date IDA - 7 assessed: 04/10/24 Feeling nervous, anxious, or on edge: 0 = Not at all Not being able to stop or control worryin = Not at all Worrying too much about different things: 0 = Not at all Trouble relaxin = Not at all Being so restless that it is hard to sit still: 0 = Not at all Becoming easily annoyed or irritable: 0 = Not at all Feeling afraid as if something awful might happen: 0 = Not at all Total IDA-7 score (0-4 normal; 5-9 mild; 10-14 moderate; 15-21 severe): 0 Source: Developed by Drs. Ernesto Calero, Gaby Daley, Alex Pittman and colleagues, with an educational alyssia from [employer]. IDA-7 Assessment Billing IDA-7 Assessment Tool: IDA-7 Assessment 97543 Review of Systems Const All systems reviewed & are unremarkable except as noted in HPI and below Eyes Reports no additional complaints Card Reports no additional complaints Resp Reports no additional complaints GI Reports no additional complaints Reports no additional complaints Physical exam (Primary Care) Vital Signs: Last Vital Signs Pulse 59 04/10/24 09:27 BP 128/76 04/10/24 09:27 Pulse Ox 98 04/10/24 09:27 Oxygen Delivery Method Room Air 04/10/24 09:27 BMI result Body Mass Index 30.4 Tobacco/Smoking Status: Tobacco use Status Tobacco use date assessed 04/10/24 04/10/24 09:41 Patient Tobacco Use Status Former Tobacco user 04/10/24 09:29 e-Cigarette/Vaping Use Never Used 04/10/24 09:29 PHQ-9: PHQ-9 Score PHQ-9: Total score 0 04/10/24 11:56 Depression Screening Interpretation: Negative Thrive Assessment: Date of Thrive Assessment Date Thrive assessed 10/11/23 04/10/24 09:29 Currently or been in a relationship where the following occur: I choose not to answer Const General: no acute distress HENMT Head: Yes normal to inspection Mouth: Normal oral and palatal mucosa present Throat: Yes posterior oropharynx normal Eyes General: appearance normal, both eyes and all related structures Neck Neck: Yes no lymphadenopathy and Yes supple Resp Effort & Inspection: normal respiratory effort Auscultation: clear to auscultation bilaterally Cardio Rhythm: regular rhythm Heart sounds: S1 normal heart sound present and S2 normal heart sound present GI Inspection: Yes normal to inspection Palpation (GI): Soft to palpation Coding Level of Care Code Est Pt Level 3 (74299) Diagnoses Essential hypertension I10 Hypertension type: essential hypertension Hyperglycemia R73.9 Additional Codes IDA-7 Assessment Billing - IDA-7 Assessment Tool: IDA-7 Assessment 16263 ([id number]) Assessment & Plan Assessment & Plan (1) Hypertension: Comment: Stable Code(s): I10 - Essential (primary) hypertension Category: Medical Qualifiers: Hypertension type: essential hypertension Qualified Code(s): I10 - Essential (primary) hypertension Plan: cont meds (2) Hyperglycemia: Code(s): R73.9 - Hyperglycemia, unspecified Category: Medical Plan: A1C 5.2, continue ADA diet regular exercise return for physical Medications: Refilled amlodipine 5 mg PO DAILY 90 tabs 3RF rivaroxaban (Xarelto) 20 mg PO DAILY 90 tabs 3RF atenolol 25 mg PO DAILY 90 tabs 3RF
== END 2024-04-10 13:18 | disposition home or self-care (01) ==
PROVIDERS: PCP Internal Medicine; Visit Provider Internal Medicine
DX: I10 Essential (primary) hypertension (principal); R73.9 Hyperglycemia, unspecified

== ENCOUNTER → 2024-04-10 09:25 | Outpatient (BNVA) | payer OTHER, SELFPAY | PROVIDERS: PCP Internal Medicine; Visit Provider Internal Medicine | DX: I10 Essential (primary) hypertension (principal); R73.9 Hyperglycemia, unspecified; Z79.899 Other long term (current) drug therapy | CPT/HCPCS: 96127; 99212 ==

== ENCOUNTER 2024-10-16 07:55 | Outpatient (REF) | payer MEDICARE, SELFPAY ==
[2024-10-16 10:05] LABS: MANUAL DIFF FLAG NO
[2024-10-16 10:10] LABS: Basophils Percent Auto 0.2 % (0-2); Eosinophils Absolute Auto 0.1 X10*3/uL (0.0-0.4); Eosinophils Percent Auto 1.5 % (0-4); Hematocrit 40.9 % (42.0-52.0); Hemoglobin 13.9 g/dl (14.0-18.0); Imm Gran Abs Auto 0.04 X10*3/uL (0.00-0.03); Imm Gran Pct Auto 0.8 % (0.0-0.4); Lymphocytes Absolute Auto 1.5 X10*3/uL (1.2-4.9); Lymphocytes Percent Auto 29.4 % (20-40); Mean Corpuscular Hemoglobin 29.7 pg (27.0-33.0); Mean Corpuscular Volume 87.4 fL (80.0-98.0); Mean Platelet Volume 10.4 fL (9.4-12.4); Monocytes Absolute Auto 0.5 X10*3/uL (0.1-1.2); Monocytes Percent Auto 9.9 % (2-11); Neutrophils Percent Auto 58.2 % (45-73); Platelet Count 192 X10*3/uL (160-400); Red Blood Count 4.68 X10*6/uL (4.60-5.80); Red Cell Distribution Width 13.3 % (11.0-16.0); White Blood Count 5.2 X10*3/uL (4.8-10.8)
[2024-10-16 10:16] LABS: Appearance Urine Clear; Color Urine Yellow; Glucose Urine UA Negative (Negative); Leukocyte Esterase Urine Negative (Negative); Nitrite Urine Negative (Negative); Specific Gravity - Urine <= 1.005 (1.005-1.025); Urine Blood Negative (Negative); Urine Ketones Negative (Negative); Urine Protein Negative (Neg-Trace)
[2024-10-16 10:21] LABS: Bacteria Urine None Seen (None Seen); Hyaline Casts Urine 0-2 /LPF (0-2); RBC Urine 0-2 /HPF (0-2); Squamous Epithelial Cell Urine 0-2 /HPF (0-2); WBC Urine 0-5 /HPF (0-5)
[2024-10-16 10:36] LABS: Alanine Aminotransferase 20 U/L (0-40); Albumin Level 4.4 g/dL (3.5-5.0); Alkaline Phosphatase 58 U/L (39-117); Anion Gap 11 (12-20); Aspartate Amino Transferase 29 U/L (5-37); Bilirubin Total 1.2 mg/dL (0.0-1.0); Blood Urea Nitrogen 12 mg/dL (9-16); Calcium 9.1 mg/dL (8.4-10.2); Carbon Dioxide 28 mmol/L (22-29); Chloride 109 mmol/L (96-108); Cholesterol 206 mg/dL (<200); Estimated Glomerular Filt Rate > 60; Glucose Fasting 105 mg/dL (60-99); HDL Cholesterol 59 mg/dL (>40); Iron 109 mcg/dL (45-160); LDL Cholesterol Calculated 134 mg/dL (<100); Percent Iron Saturation 47 % (15-50); Potassium 4.3 mmol/L (3.3-5.1); Sodium 144 mmol/L (135-145); Total Iron Binding Capacity 231 mcg/dL (228-428); Total Protein 7.2 g/dL (6.5-8.0); Triglycerides 66 mg/dL (<150); Unsaturated Iron Binding 122 ug/dL
[2024-10-16 10:39] LABS: PSA,Total (Free>4and<10) 1.31 ng/mL (0.00-4.00)
[2024-10-16 10:48] LABS: Estimated Average Glucose 103 mg/dL; Hemoglobin A1C 120.1359 umol/L; Hemoglobin A1c % 5.2 % (<6.0); Total Hemoglobin (HGBA1C) 3566.5896 umol/L
[2024-10-16 10:56] LABS: Folate 9.9 ng/mL (> or = 4.0); Vitamin B12 521 pg/mL (200-900)
== END 2024-10-16 07:56 | disposition home or self-care (01) ==
LOC: HO.HMGCLDS 07:55
PROVIDERS: PCP Internal Medicine; Visit Provider Internal Medicine
DX: R73.9 Hyperglycemia, unspecified (principal); I10 Essential (primary) hypertension; D64.9 Anemia, unspecified; Z12.5 Encounter for screening for malignant neoplasm of prostate
CPT/HCPCS: 36415; 80053; 80061; 81001; 82607; 82746; 83036; 83540; 84153; 85025

== ENCOUNTER 2024-10-19 11:41 | Outpatient (AMB) | payer MEDICARE, MEDICAID, SELFPAY ==
[2024-10-19 11:43] VITALS: BP 134/80; PULSE 49; RESP 16; TEMP 36.4; O2SAT 98; BMI 31.6
--- NOTE | 2024-10-19 11:43 | MHC.PC.OV ---
Vital Signs 10/19/24 11:43 Height 5 ft 8 in Weight 208 lb BMI 31.6 BP 134/80 Blood Pressure Location Lt brachial Position Sitting Respiration 16 Pulse 49 L Pulse Source Pulse Oximeter Temp 97.5 F Temp Source Oral Pulse Oximetry (%) 98 Oxygen Delivery Method Room Air Intake Visit Reasons: Annual PE Intake Note: Pt is here today for PE. Allergies hydrochlorothiazide Adverse Reaction (Intermediate, Verified 10/19/24 11:45) Abdominal Pain Medication List - Last Reconciled 10/19/24 by Melissa Bishop MD cholecalciferol (vitamin D3) 25 mcg PO DAILY olmesartan 20 mg PO DAILY rivaroxaban (Xarelto) 20 mg PO DAILY Tobacco use date assessed: 10/19/24 Fall risk assessment: No Falls in past year Last assessed Fall Risk: 10/19/24 Dental Screening Dental Screen Date: 10/19/24 Did you have a dental visit in the last 12 months?: Yes Did you have a dental problem in the last 6 months where you did not have access to dental care?: No Was dental information given to patient?: Patient has dentist HPI Annual PE HPI Details Patient presents for physical. He stopped taking amlodipine because he feels his blood pressure is well-controlled but has not been checking it at home. He has been taking atenolol only PFSH Medical History Elevated ferritin level Colon cancer screening Enlarged prostate DVT (deep venous thrombosis) Hypertension Surgical History H/O cardiac catheterization History of hernia repair Family History Mother HTN (hypertension) Brother HTN (hypertension) Prostate cancer Father No problems noted. Mother No problems noted. Social History Household Members Other:: divored, son, retired, Housing: House Alcohol intake: current Alcohol intake frequency: a few times a month Comment: PT SLEEPING Patient Tobacco Use Status: Former Tobacco user e-Cigarette/Vaping Use: Never Used service: No Current occupational status: employed Cognitive needs: No Hearing needs: No Vision needs: Yes Questionnaire PHQ-9 Over the last 2 weeks, how often have you been bothered by any of the following problems? 1. Little interest or pleasure in doing things: not at all 2. Feeling down, depressed, or hopeless: not at all 3. Trouble falling or staying asleep, or sleeping too much: not at all 4. Feeling tired or having little energy: not at all 5. Poor appetite or overeating: not at all 6. Feeling bad about yourself - or that you are a failure or have let yourself or your family down: not at all 7. Trouble concentrating on things, such as reading the newspaper or watching television: not at all 8. Moving or speaking so slowly that other people could have noticed. Or the opposite - being so fidgety or restless that you have been moving around a lot more than usual: not at all 9. Thoughts that you would be better off or of hurting yourself in some way: not at all Total score: 0 Depression Screening Interpretation: Negative Depression Screening Done: Yes 06202 - PHQ-9 Billing: Yes Source: Developed by Drs. Ernesto Calero, Gaby Daley, Alex Pittman and colleagues, with an educational alyssia from [employer]. Thrive Questionnaire Date Thrive assessed: 10/19/24 I am a: Patient What is your living situation today?: I have a steady place to live Within the past 12 months, did the food you bought not last and you didn't have the money to get more?: I choose not to answer this question Within the past 12 months, did you worry whether your food would run out before you got money to buy more?: I choose not to answer this question Do you have trouble paying for medicines?: No Do you have trouble getting transportation to medical appointments?: No Do you have trouble paying your heating and electricity bill?: No Do you have trouble taking care of your child, family member or friend?: No Do you have trouble with day-to-day activities such as bathing, preparing meals, shopping, managing finances, etc.?: No Are you currently unemployed and looking for a job?: No Are you interested in more education?: No Please select the resources that you would like help with: None Currently or been in a relationship where the following occur: I choose not to answer THRIVE Score: 0 AUDIT C Alcohol Use Questionnaire (AUDIT-C) 1. How often do you have a drink containing alcohol?: Monthly or less 2. How many drinks containing alcohol do you have on a typical day when you are drinking?: 1 or 2 3. How often do you have six or more drinks on one occasion?: Never Total Score: 1 IDA-7 AMB Questionnaire IDA-7 Date IDA - 7 assessed: 10/19/24 Feeling nervous, anxious, or on edge: 0 = Not at all Not being able to stop or control worryin = Not at all Worrying too much about different things: 0 = Not at all Trouble relaxin = Not at all Being so restless that it is hard to sit still: 0 = Not at all Becoming easily annoyed or irritable: 0 = Not at all Feeling afraid as if something awful might happen: 0 = Not at all Total IDA-7 score (0-4 normal; 5-9 mild; 10-14 moderate; 15-21 severe): 0 Source: Developed by Drs. Ernesto Calero, Gaby Daley, Alex Pittman and colleagues, with an educational alyssia from [employer]. IDA-7 Assessment Billing IDA-7 Assessment Tool: IDA-7 Assessment 25180 Review of Systems Const All systems reviewed & are unremarkable except as noted in HPI and below Reports no additional complaints Eyes Reports no additional complaints ENT Reports no additional complaints Card Reports no additional complaints Resp Reports no additional complaints GI Reports no additional complaints Reports no additional complaints Musc Reports no additional complaints Physical exam (Primary Care) Vital Signs: Last Vital Signs Temp 97.5 F 10/19/24 11:43 Pulse 49 L 10/19/24 11:43 Resp 16 10/19/24 11:43 BP 134/80 10/19/24 11:43 Pulse Ox 98 10/19/24 11:43 Oxygen Delivery Method Room Air 10/19/24 11:43 BMI result Body Mass Index 31.6 Tobacco/Smoking Status: Tobacco use Status Tobacco use date assessed 10/19/24 10/19/24 11:49 Patient Tobacco Use Status Former Tobacco user 10/19/24 11:43 e-Cigarette/Vaping Use Never Used 10/19/24 11:43 PHQ-9: PHQ-9 Score PHQ-9: Total score 0 10/19/24 12:08 Depression Screening Interpretation: Negative Thrive Assessment: Date of Thrive Assessment Date Thrive assessed 10/19/24 10/19/24 11:49 Currently or been in a relationship where the following occur: I choose not to answer Const General: no acute distress HENMT Ears: hearing grossly normal bilaterally Mouth: Normal oral and palatal mucosa present Eyes General: appearance normal, both eyes and all related structures Neck Neck: Yes no lymphadenopathy and Yes supple Resp Effort & Inspection: normal respiratory effort Auscultation: clear to auscultation bilaterally Cardio Rhythm: regular rhythm Heart sounds: S1 normal heart sound present and S2 normal heart sound present GI Inspection: Yes normal to inspection Palpation (GI): Soft to palpation Percussion: Yes normal to percussion Auscultation: normal bowel sounds Coding Level of Care Code Est Pt Prev Care >65y(05959) Diagnoses Essential hypertension I10 Hypertension type: essential hypertension Annual physical exam Z00.00 Additional Codes IDA-7 Assessment Billing - IDA-7 Assessment Tool: IDA-7 Assessment 14581 ([id number]) PHQ-9 - 46941 - PHQ-9 Billing: Yes ([id number]) Assessment & Plan Assessment & Plan (1) Hypertension: Code(s): I10 - Essential (primary) hypertension Category: Medical Qualifiers: Hypertension type: essential hypertension Qualified Code(s): I10 - Essential (primary) hypertension Plan: BP is elevated and heart rate is slow. Patient will stop atenolol and start olmesartan 20 mg daily. Patient follow-up in 3 weeks because he is going to [place] in 1 month. Low-sodium diet regular physical activity discussed with the patient (2) Annual physical exam: Code(s): Z00.00 - Encounter for general adult medical examination without abnormal findings Category: Medical Plan: Well-balanced diet regular physical activity discussed with the patient he declined colonoscopy and Pneumovax Orders: Orders Basic Metabolic Panel 3 Weeks I10 - Essential (primary) hypertension Medications: New olmesartan 20 mg PO DAILY 90 tabs 0RF
== END 2024-10-19 12:29 | disposition home or self-care (01) ==
LOC: HO.HMCC 11:42
PROVIDERS: PCP Internal Medicine; Visit Provider Internal Medicine
DX: Z00.00 Encounter for general adult medical examination without abnormal findings (principal); I10 Essential (primary) hypertension

== ENCOUNTER → 2024-10-19 11:41 | Outpatient (BNVA) | payer MEDICARE, OTHER, SELFPAY | PROVIDERS: PCP Internal Medicine; Visit Provider Internal Medicine | DX: Z00.00 Encounter for general adult medical examination without abnormal findings (principal); I10 Essential (primary) hypertension | CPT/HCPCS: 96127; 99397 ==

== ENCOUNTER 2024-11-14 07:25 | Outpatient (REF) | payer MEDICARE, MEDICAID, SELFPAY ==
[2024-11-14 10:44] LABS: Anion Gap 13 (12-20); Blood Urea Nitrogen 14 mg/dL (9-16); Calcium 9.3 mg/dL (8.4-10.2); Carbon Dioxide 26 mmol/L (22-29); Chloride 110 mmol/L (96-108); Estimated Glomerular Filt Rate > 60; Glucose Random 99 mg/dL (60-115); Potassium 4.6 mmol/L (3.3-5.1); Sodium 144 mmol/L (135-145)
== END 2024-11-14 07:26 | disposition home or self-care (01) ==
LOC: HO.HMGCLDS 07:25
PROVIDERS: PCP Internal Medicine; Visit Provider Internal Medicine
DX: I10 Essential (primary) hypertension (principal)
CPT/HCPCS: 36415; 80048

== ENCOUNTER 2024-11-17 13:03 | Outpatient (AMB) | payer MEDICARE, MEDICAID, SELFPAY ==
--- NOTE | 2024-11-17 13:13 | A.OFFPC_ITS ---
Vital Signs 11/17/24 13:17 Height 5 ft 8 in Weight 206 lb 8 oz BMI 31.4 BP 154/94 H Blood Pressure Location Rt brachial Position Sitting Respiration 18 Pulse 69 Temp 98.2 F Temp Source Oral Pulse Oximetry (%) 97 Oxygen Delivery Method Room Air Intake Visit Reasons: 3 weeks f/up Intake Note: Pt is here for 3 week follow up. Allergies hydrochlorothiazide Adverse Reaction (Intermediate, Verified 11/17/24 13:18) Abdominal Pain Medication List - Last Reconciled 11/17/24 by Melissa Bishop MD amlodipine 5 mg PO DAILY cholecalciferol (vitamin D3) 25 mcg PO DAILY lorazepam 0.5 mg PO DAILY PRN olmesartan 20 mg PO DAILY rivaroxaban (Xarelto) 20 mg PO DAILY Tobacco use date assessed: 11/17/24 Fall risk assessment: No Falls in past year Last assessed Fall Risk: 11/17/24 Dental Screening Dental Screen Date: 11/17/24 Did you have a dental visit in the last 12 months?: Yes Did you have a dental problem in the last 6 months where you did not have access to dental care?: No Was dental information given to patient?: Patient has dentist HPI 3 weeks f/up HPI Details Pt presents for f/u of HTN. He has been taking Olmesartan 20 mg and reports elevated BP when is stressed out and feeling anxious. Patient is living for [place] next week. [facility]LY [facility], [facility] Medical History Elevated ferritin level Colon cancer screening Enlarged prostate DVT (deep venous thrombosis) Hypertension Surgical History H/O cardiac catheterization History of hernia repair Family History Mother HTN (hypertension) Brother HTN (hypertension) Prostate cancer Father No problems noted. Mother No problems noted. Social History Household Members Other:: divored, son, retired, Housing: House Alcohol intake: current Alcohol intake frequency: a few times a month Comment: PT SLEEPING Patient Tobacco Use Status: Former Tobacco user e-Cigarette/Vaping Use: Never Used service: No Current occupational status: employed Cognitive needs: No Hearing needs: No Vision needs: Yes Questionnaire PHQ-9 Over the last 2 weeks, how often have you been bothered by any of the following problems? 1. Little interest or pleasure in doing things: not at all 2. Feeling down, depressed, or hopeless: not at all 3. Trouble falling or staying asleep, or sleeping too much: not at all 4. Feeling tired or having little energy: not at all 5. Poor appetite or overeating: not at all 6. Feeling bad about yourself - or that you are a failure or have let yourself or your family down: not at all 7. Trouble concentrating on things, such as reading the newspaper or watching television: not at all 8. Moving or speaking so slowly that other people could have noticed. Or the opposite - being so fidgety or restless that you have been moving around a lot more than usual: not at all 9. Thoughts that you would be better off or of hurting yourself in some way: not at all Total score: 0 Depression Screening Interpretation: Negative Depression Screening Done: Yes 59786 - PHQ-9 Billing: Yes Source: Developed by Drs. Ernesto Calero, Gbay Daley, Alex Pittman and colleagues, with an educational alyssia from [employer]. Thrive Questionnaire Date Thrive assessed: 10/19/24 I am a: Patient What is your living situation today?: I have a steady place to live Within the past 12 months, did the food you bought not last and you didn't have the money to get more?: I choose not to answer this question Within the past 12 months, did you worry whether your food would run out before you got money to buy more?: I choose not to answer this question Do you have trouble paying for medicines?: No Do you have trouble getting transportation to medical appointments?: No Do you have trouble paying your heating and electricity bill?: No Do you have trouble taking care of your child, family member or friend?: No Do you have trouble with day-to-day activities such as bathing, preparing meals, shopping, managing finances, etc.?: No Are you currently unemployed and looking for a job?: No Are you interested in more education?: No Please select the resources that you would like help with: None Currently or been in a relationship where the following occur: I choose not to answer THRIVE Score: 0 AUDIT C Alcohol Use Questionnaire (AUDIT-C) 1. How often do you have a drink containing alcohol?: Monthly or less 2. How many drinks containing alcohol do you have on a typical day when you are drinking?: 1 or 2 3. How often do you have six or more drinks on one occasion?: Never Total Score: 1 IDA-7 AMB Questionnaire IDA-7 Date IDA - 7 assessed: 10/19/24 Source: Developed by Drs. Ernesto Calero, Gaby Daley, Alex Pittman and colleagues, with an educational alyssia from [employer]. Review of Systems Const All systems reviewed & are unremarkable except as noted in HPI and below ENT Reports no additional complaints Card Reports no additional complaints Resp Reports no additional complaints GI Reports no additional complaints Physical exam (Primary Care) Vital Signs: Last Vital Signs Temp 98.2 F 11/17/24 13:17 Pulse 69 11/17/24 13:17 Resp 18 11/17/24 13:17 BP 154/94 H 11/17/24 13:17 Pulse Ox 97 11/17/24 13:17 Oxygen Delivery Method Room Air 11/17/24 13:17 BMI result Body Mass Index 31.4 Tobacco/Smoking Status: Tobacco use Status Tobacco use date assessed 11/17/24 11/17/24 13:24 Patient Tobacco Use Status Former Tobacco user 11/17/24 13:14 e-Cigarette/Vaping Use Never Used 11/17/24 13:14 PHQ-9: PHQ-9 Score PHQ-9: Total score 0 11/17/24 13:24 Depression Screening Interpretation: Negative Thrive Assessment: Date of Thrive Assessment Date Thrive assessed 10/19/24 11/17/24 13:14 Currently or been in a relationship where the following occur: I choose not to answer Const General: no acute distress HENMT Mouth: Normal oral and palatal mucosa present Resp Effort & Inspection: normal respiratory effort Auscultation: clear to auscultation bilaterally Cardio Rhythm: regular rhythm Heart sounds: S1 normal heart sound present and S2 normal heart sound present GI Inspection: Yes normal to inspection Coding Level of Care Code Est Pt Level 3 (68287) Diagnoses Essential hypertension I10 Hypertension type: essential hypertension Additional Codes PHQ-9 - 91839 - PHQ-9 Billing: Yes ([id number]) Assessment & Plan Assessment & Plan (1) Hypertension: Code(s): I10 - Essential (primary) hypertension Category: Medical Qualifiers: Hypertension type: essential hypertension Qualified Code(s): I10 - Essential (primary) hypertension Plan: Continue olmesartan and restart 5 mg of amlodipine. Low-sodium diet regular physical activity discussed with the patient, he will monitor his blood pressure and if still elevated after 2 weeks from restarting amlodipine patient was advised to add a half a tablet of 25 mg of atenolol. Stress management discussed with the patient . lorazepam 0.5 mg PRN for anxiety as prescribed. Patient will return in 1 month Medications: New lorazepam 0.5 mg PO DAILY PRN 10 tabs 0RF anxiety amlodipine 5 mg PO DAILY 90 tabs 0RF
[2024-11-17 13:17] VITALS: BP 154/94; PULSE 69; RESP 18; TEMP 36.8; O2SAT 97; BMI 31.4
== END 2024-11-17 13:42 | disposition home or self-care (01) ==
LOC: HO.HMCC 13:04
PROVIDERS: PCP Internal Medicine; Visit Provider Internal Medicine
DX: I10 Essential (primary) hypertension (principal)

== ENCOUNTER → 2024-11-17 13:03 | Outpatient (BNVA) | payer MEDICARE, MEDICAID, SELFPAY | PROVIDERS: PCP Internal Medicine; Visit Provider Internal Medicine | DX: I10 Essential (primary) hypertension (principal) | CPT/HCPCS: 96127; 99212 ==

== ENCOUNTER 2025-01-01 11:31 | Outpatient (AMB) | payer MEDICARE, MEDICAID, SELFPAY ==
--- NOTE | 2025-01-01 11:57 | MHC.PC.OV ---
Vital Signs 01/01/25 11:58 Height 5 ft 8 in Weight 202 lb BMI 30.7 BP 126/80 Blood Pressure Location Lt brachial Position Sitting Respiration 18 Pulse 65 Pulse Source Pulse Oximeter Temp 98.1 F Temp Source Oral Pulse Oximetry (%) 97 Oxygen Delivery Method Room Air Intake Visit Reasons: follow up Allergies hydrochlorothiazide Adverse Reaction (Intermediate, Verified 01/01/25 11:59) Abdominal Pain Medication List - Last Reconciled 01/01/25 by Melissa Bishop MD amlodipine 5 mg PO DAILY cholecalciferol (vitamin D3) 25 mcg PO DAILY lorazepam 0.5 mg PO DAILY PRN olmesartan 20 mg PO DAILY rivaroxaban (Xarelto) 20 mg PO DAILY Tobacco use date assessed: 01/01/25 Fall risk assessment: No Falls in past year Last assessed Fall Risk: 01/01/25 Dental Screening Dental Screen Date: 11/17/24 HPI follow up HPI Details Patient presents for the follow-up of hypertension controlled with her medications. [facility] Medical History (Updated 01/01/25 @ 12:49 by Melissa Bishop MD) Elevated ferritin level Colon cancer screening Enlarged prostate DVT (deep venous thrombosis) Hypertension Surgical History H/O cardiac catheterization History of hernia repair Family History Mother HTN (hypertension) Brother HTN (hypertension) Prostate cancer Father No problems noted. Mother No problems noted. Social History Household Members Other:: divored, son, retired, Housing: House Alcohol intake: current Alcohol intake frequency: a few times a month Comment: PT SLEEPING Patient Tobacco Use Status: Former Tobacco user e-Cigarette/Vaping Use: Never Used service: No Current occupational status: employed Cognitive needs: No Hearing needs: No Vision needs: Yes Questionnaire Thrive Questionnaire Date Thrive assessed: 10/16/24 I am a: Patient What is your living situation today?: I have a steady place to live Within the past 12 months, did the food you bought not last and you didn't have the money to get more?: I choose not to answer this question Within the past 12 months, did you worry whether your food would run out before you got money to buy more?: I choose not to answer this question Do you have trouble paying for medicines?: No Do you have trouble getting transportation to medical appointments?: No Do you have trouble paying your heating and electricity bill?: No Do you have trouble taking care of your child, family member or friend?: No Do you have trouble with day-to-day activities such as bathing, preparing meals, shopping, managing finances, etc.?: No Are you currently unemployed and looking for a job?: No Are you interested in more education?: No Please select the resources that you would like help with: None Currently or been in a relationship where the following occur: I choose not to answer THRIVE Score: 0 IDA-7 AMB Questionnaire IDA-7 Date IDA - 7 assessed: 10/19/24 Source: Developed by Drs. Ernesto Calero, Gaby Daley, Alex Pittman and colleagues, with an educational alyssia from [employer]. Review of Systems Const All systems reviewed & are unremarkable except as noted in HPI and below Eyes Reports no additional complaints ENT Reports no additional complaints Card Reports no additional complaints Resp Reports no additional complaints GI Reports no additional complaints Physical exam (Primary Care) Vital Signs: Last Vital Signs Temp 98.1 F 01/01/25 11:58 Pulse 65 01/01/25 11:58 Resp 18 01/01/25 11:58 BP 126/80 01/01/25 11:58 Pulse Ox 97 01/01/25 11:58 Oxygen Delivery Method Room Air 01/01/25 11:58 BMI result Body Mass Index 30.7 Tobacco/Smoking Status: Tobacco use Status Tobacco use date assessed 01/01/25 01/01/25 12:03 Patient Tobacco Use Status Former Tobacco user 01/01/25 12:03 e-Cigarette/Vaping Use Never Used 01/01/25 12:03 Thrive Assessment: Date of Thrive Assessment Date Thrive assessed 10/16/24 01/01/25 12:03 Currently or been in a relationship where the following occur: I choose not to answer Const General: no acute distress HENMT Head: Yes normal to inspection Eyes General: appearance normal, both eyes and all related structures Resp Effort & Inspection: normal respiratory effort Auscultation: clear to auscultation bilaterally Cardio Rhythm: regular rhythm Heart sounds: S1 normal heart sound present and S2 normal heart sound present GI Inspection: Yes normal to inspection Coding Level of Care Code Est Pt Level 4 (38077) Diagnoses Anemia D64.9 Essential hypertension I10 Hypertension type: essential hypertension Hyperlipidemia E78.5 DVT (deep venous thrombosis) I82.409 Assessment & Plan Assessment & Plan (1) Anemia: Code(s): D64.9 - Anemia, unspecified Category: Medical Plan: Monitor CBC (2) Hypertension: Code(s): I10 - Essential (primary) hypertension Category: Medical Qualifiers: Hypertension type: essential hypertension Qualified Code(s): I10 - Essential (primary) hypertension Plan: Continue current medications, follow-up in 3 months with a fasting labs before (3) Hyperlipidemia: Code(s): E78.5 - Hyperlipidemia, unspecified Category: Medical Plan: Continue low-cholesterol diet (4) DVT (deep venous thrombosis): Comment: 2014 unprovoked DVT , on lifetime anticoagulation Code(s): I82.409 - Acute embolism and thrombosis of unspecified deep veins of unspecified lower extremity Category: Medical Plan: Continue Xarelto Orders: Orders Lipid Panel 3 Months D64.9 - Anemia, unspecified, I10 - Essential (primary) hypertension, R79.89 - Other specified abnormal findings of blood chemistry Hemoglobin A1c 3 Months D64.9 - Anemia, unspecified, I10 - Essential (primary) hypertension, R79.89 - Other specified abnormal findings of blood chemistry Complete Blood Count Auto Diff 3 Months D64.9 - Anemia, unspecified, I10 - Essential (primary) hypertension, R79.89 - Other specified abnormal findings of blood chemistry Comprehensive [place]. Panel Fast 3 Months D64.9 - Anemia, unspecified, I10 - Essential (primary) hypertension, R79.89 - Other specified abnormal findings of blood chemistry Ferritin 3 Months D64.9 - Anemia, unspecified, I10 - Essential (primary) hypertension, R79.89 - Other specified abnormal findings of blood chemistry Medications: Refilled rivaroxaban (Xarelto) 20 mg PO DAILY 90 tabs 3RF amlodipine 5 mg PO DAILY 90 tabs 3RF olmesartan 20 mg PO DAILY 90 tabs 3RF
[2025-01-01 11:58] VITALS: BP 126/80; PULSE 65; RESP 18; TEMP 36.7; O2SAT 97; BMI 30.7
== END 2025-01-01 12:50 | disposition home or self-care (01) ==
LOC: HO.HMCC 11:32
PROVIDERS: PCP Internal Medicine; Visit Provider Internal Medicine
DX: D64.9 Anemia, unspecified (principal); I10 Essential (primary) hypertension; E78.5 Hyperlipidemia, unspecified; I82.409 Acute embolism and thrombosis of unspecified deep veins of unspecified lower extremity

== ENCOUNTER → 2025-01-01 11:31 | Outpatient (BNVA) | payer MEDICARE, MEDICAID, SELFPAY | PROVIDERS: PCP Internal Medicine; Visit Provider Internal Medicine | DX: D64.9 Anemia, unspecified (principal); I10 Essential (primary) hypertension; E78.5 Hyperlipidemia, unspecified; Z86.718 Personal history of other venous thrombosis and embolism; Z79.01 Long term (current) use of anticoagulants | CPT/HCPCS: 99212 ==

== ENCOUNTER 2025-03-23 07:10 | Outpatient (REF) | payer MEDICARE, MEDICAID, SELFPAY ==
[2025-03-23 10:18] LABS: MANUAL DIFF FLAG NO
[2025-03-23 10:27] LABS: Hematocrit 39.7 % (42.0-52.0); Hemoglobin 13.7 g/dl (14.0-18.0); Imm Gran Abs Auto 0.03 X10*3/uL (0.00-0.03); Imm Gran Pct Auto 0.6 % (0.0-0.4); Lymphocytes Absolute Auto 1.5 X10*3/uL (1.2-4.9); Mean Corpuscular HGB Conc 34.5 g/dl (31.0-36.0); Mean Corpuscular Hemoglobin 29.8 pg (27.0-33.0); Mean Corpuscular Volume 86.5 fL (80.0-98.0); NRBC Abs Auto 0.000 X10*3/uL (0.0-0.012); NRBC Pct Auto 0.0 /100WBC (0.0-0.2); Platelet Count 193 X10*3/uL (160-400); Red Blood Count 4.59 X10*6/uL (4.60-5.80); White Blood Count 5.2 X10*3/uL (4.8-10.8)
[2025-03-23 11:07] LABS: Total Hemoglobin (HGBA1C) 3553.3189 umol/L
[2025-03-23 11:15] LABS: Alanine Aminotransferase 23 U/L (0-40); Albumin Level 4.6 g/dL (3.5-5.0); Alkaline Phosphatase 52 U/L (39-117); Anion Gap 10 (12-20); Aspartate Amino Transferase 31 U/L (5-37); Blood Urea Nitrogen 13 mg/dL (9-16); Calcium 9.1 mg/dL (8.4-10.2); Carbon Dioxide 27 mmol/L (22-29); Chloride 110 mmol/L (96-108); Cholesterol 219 mg/dL (<200); Estimated Glomerular Filt Rate > 60; HDL Cholesterol 64 mg/dL (>40); Potassium 4.6 mmol/L (3.3-5.1); Sodium 142 mmol/L (135-145); Total Protein 7.0 g/dL (6.5-8.0); Triglycerides 58 mg/dL (<150)
[2025-03-23 11:39] LABS: Ferritin 590 ng/mL (20-250)
== END 2025-03-23 07:11 | disposition home or self-care (01) ==
LOC: HO.HMGCLDS 07:10
PROVIDERS: PCP Internal Medicine; Visit Provider Internal Medicine
DX: I10 Essential (primary) hypertension (principal); D64.9 Anemia, unspecified; R79.89 Other specified abnormal findings of blood chemistry
CPT/HCPCS: 36415; 80053; 80061; 82728; 83036; 85025

== ENCOUNTER 2025-04-03 09:10 | Outpatient (AMB) | payer MEDICARE, MEDICAID, SELFPAY ==
[2025-04-03 09:11] VITALS: BP 120/74; PULSE 71; RESP 18; TEMP 36.7; O2SAT 97; BMI 31.2
--- NOTE | 2025-04-03 09:11 | MHC.PC.OV ---
Vital Signs 04/03/25 09:11 Height 5 ft 8 in Weight 205 lb BMI 31.2 BP 120/74 Blood Pressure Location Lt brachial Position Sitting Respiration 18 Pulse 71 Pulse Source Pulse Oximeter Temp 98.0 F Temp Source Oral Pulse Oximetry (%) 97 Oxygen Delivery Method Room Air Intake Visit Reasons: 3m follow up Intake Note: Pt is here today for 3 months folllow up visit. Allergies hydrochlorothiazide Adverse Reaction (Intermediate, Verified 04/03/25 09:12) Abdominal Pain Medication List - Last Reconciled 04/03/25 by Melissa Bishop MD amlodipine 5 mg PO DAILY cholecalciferol (vitamin D3) 25 mcg PO DAILY lorazepam 0.5 mg PO DAILY PRN olmesartan 20 mg PO DAILY rivaroxaban (Xarelto) 20 mg PO DAILY Tobacco use date assessed: 04/03/25 Fall risk assessment: No Falls in past year Last assessed Fall Risk: 04/03/25 Dental Screening Dental Screen Date: 11/17/24 HPI 3m follow up HPI Details Patient presents for the follow-up on hypertension and diet-controlled hyperlipidemia PFSH Medical History Elevated ferritin level Colon cancer screening Enlarged prostate DVT (deep venous thrombosis) Hypertension Surgical History H/O cardiac catheterization History of hernia repair Family History Mother HTN (hypertension) Brother HTN (hypertension) Prostate cancer Father No problems noted. Mother No problems noted. Social History Household Members Other:: divored, son, retired, Housing: House Alcohol intake: current Alcohol intake frequency: a few times a month Comment: PT SLEEPING Patient Tobacco Use Status: Former Tobacco user e-Cigarette/Vaping Use: Never Used service: No Current occupational status: employed Cognitive needs: No Hearing needs: No Vision needs: Yes Questionnaire Thrive Questionnaire Date Thrive assessed: 10/16/24 I am a: Patient What is your living situation today?: I have a steady place to live Within the past 12 months, did the food you bought not last and you didn't have the money to get more?: I choose not to answer this question Within the past 12 months, did you worry whether your food would run out before you got money to buy more?: I choose not to answer this question Do you have trouble paying for medicines?: No Do you have trouble getting transportation to medical appointments?: No Do you have trouble paying your heating and electricity bill?: No Do you have trouble taking care of your child, family member or friend?: No Do you have trouble with day-to-day activities such as bathing, preparing meals, shopping, managing finances, etc.?: No Are you currently unemployed and looking for a job?: No Are you interested in more education?: No Please select the resources that you would like help with: None Currently or been in a relationship where the following occur: I choose not to answer THRIVE Score: 0 IDA-7 AMB Questionnaire IDA-7 Date IDA - 7 assessed: 10/19/24 Source: Developed by Drs. Ernesto Calero, Gaby Daley, Alex Pittman and colleagues, with an educational alyssia from [email or web address]. Review of Systems Const All systems reviewed & are unremarkable except as noted in HPI and below Card Reports no additional complaints Resp Reports no additional complaints GI Reports no additional complaints Physical exam (Primary Care) Vital Signs: Last Vital Signs Temp 98.0 F 04/03/25 09:11 Pulse 71 04/03/25 09:11 Resp 18 04/03/25 09:11 BP 120/74 04/03/25 09:11 Pulse Ox 97 04/03/25 09:11 Oxygen Delivery Method Room Air 04/03/25 09:11 BMI result Body Mass Index 31.2 Tobacco/Smoking Status: Tobacco use Status Tobacco use date assessed 04/03/25 04/03/25 09:12 Patient Tobacco Use Status Former Tobacco user 04/03/25 09:12 e-Cigarette/Vaping Use Never Used 04/03/25 09:12 Thrive Assessment: Date of Thrive Assessment Date Thrive assessed 10/16/24 04/03/25 09:12 Currently or been in a relationship where the following occur: I choose not to answer Const General: no acute distress HENMT Head: Yes normal to inspection Throat: Yes posterior oropharynx normal Neck Neck: Yes supple Resp Effort & Inspection: normal respiratory effort Auscultation: clear to auscultation bilaterally Cardio Rhythm: regular rhythm Heart sounds: S1 normal heart sound present and S2 normal heart sound present Coding Level of Care Code Est Pt Level 4 (64141) Diagnoses DVT (deep venous thrombosis) I82.409 Essential hypertension I10 Hypertension type: essential hypertension Hyperlipidemia E78.5 Elevated ferritin level R79.89 Assessment & Plan Assessment & Plan (1) DVT (deep venous thrombosis): Comment: 2014 unprovoked DVT , on lifetime anticoagulation Code(s): I82.409 - Acute embolism and thrombosis of unspecified deep veins of unspecified lower extremity Category: Medical Plan: Continue Xarelto (2) Hypertension: Code(s): I10 - Essential (primary) hypertension Category: Medical Qualifiers: Hypertension type: essential hypertension Qualified Code(s): I10 - Essential (primary) hypertension Plan: Continue current medications (3) Hyperlipidemia: Code(s): E78.5 - Hyperlipidemia, unspecified Category: Medical Plan: Continue low-cholesterol diet return in 7 months for physical with a fasting labs before (4) Elevated ferritin level: Comment: nl Iron count , 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 Panel Fast 7 Months E78.5 - Hyperlipidemia, unspecified, I10 - Essential (primary) hypertension, I82.409 - Acute embolism and thrombosis of unspecified deep veins of unspecified lower extremity Complete Blood Count Auto Diff 7 Months E78.5 - Hyperlipidemia, unspecified, I10 - Essential (primary) hypertension, I82.409 - Acute embolism and thrombosis of unspecified deep veins of unspecified lower extremity UA w Microscopic 7 Months E78.5 - Hyperlipidemia, unspecified, I10 - Essential (primary) hypertension, I82.409 - Acute embolism and thrombosis of unspecified deep veins of unspecified lower extremity Ferritin 7 Months R79.89 - Other specified abnormal findings of blood chemistry Lipid Panel 7 Months E78.5 - Hyperlipidemia, unspecified, I10 - Essential (primary) hypertension, I82.409 - Acute embolism and thrombosis of unspecified deep veins of unspecified lower extremity PSA,Total (Free>4and<10) 7 Months E78.5 - Hyperlipidemia, unspecified, I10 - Essential (primary) hypertension, I82.409 - Acute embolism and thrombosis of unspecified deep veins of unspecified lower extremity IRON PROFILE 7 Months R79.89 - Other specified abnormal findings of blood chemistry
--- OUTSIDE RECORDS SUMMARY | 2025-04-03 09:55 | XMS_ITS | Clinical Summary ---
Author Organization [employer] Address [address] [place] [address] Care Team Providers Care Survey Instrument Operator Name Role Phone Unavailable Primary Care Provider Unavailabl e Social History Tobacco Use Types Packs/Day Years Used Date Smoking Tobacco: Never Assessed Sex and Gender Information Value Date Recorded Sex Assigned at Male 10/10/2024 9:37 AM EDT Legal Sex Male 9:35 AM EDT Gender Identity Male 10/10/2024 9:37 AM EDT Sexual Orientation Straight 10/10/2024 9: 37 AM EDT Plan of Treatment Upcoming Encounters Date Type Department Care Team ([facility] st Contact Info) Description 05/09/2025 8:45 AM EST Office Visit [facility] [address] [place] [address] Laurent Brady Health Maintenance Due Date Last Done Comments CT Colonography 1959 Colonoscopy 1959 Colorectal Cancer Screening 1959 Depression Screening 1959 FIT DNA/Cologuard 1959 FIT 1959 FOBT 1959 Lipid Panel 1959 SDOH Screening 1959 Sigmoidoscopy 1959 Alcohol/Substance Use Screening 1971 Tobacco Screening 1971 Hepatitis C Screening 1977 DTaP/Tdap/Td Vaccines (1 - Tdap) 1978 Pneumococcal Vaccine: 50+ Ye ars (1 of 1 - PCV) 2009 Zoster Vaccines (1 of 2) 2009 COVID-19 Vaccine ( - 2023-2 5 season) 2025 Influenza Vaccine (#1) 2025 RSV Patients and Pa tients Aged 60 years or older (1 - 1-dose 75+ series) 2034 HIB Vaccines Aged Out No longer eligi ble based on patient's age to complete this topic HPV Vaccines Aged Out No longer eligi ble based on patient's age to complete this topic Hepatitis A Vaccines Aged Out No long er eligible based on patient's age to complete this topic Hepatitis B Vaccines Aged Out No long er eligible based on patient's age to complete this topic IPV Vaccines Aged Out No longer eligi ble based on patient's age to complete this topic Meningococcal B Vaccine Aged Out No l onger eligible based on patient's age to complete this topic Meningococcal Vaccine Aged Out No kim ashlyn eligible based on patient's age to complete this topic RSV under 20 months Aged Out No longe r eligible based on patient's age to complete this topic Rotavirus Vaccines Aged Out No longer eligible based on patient's age to complete this topic Insurance [employer] [address] [address] DENTAL - HSN PARTIAL (MEDICAID) [place] [employer] [address] [place] [id number]
== END 2025-04-03 10:36 | disposition home or self-care (01) ==
LOC: HO.HMCC 09:11
PROVIDERS: PCP Internal Medicine; Visit Provider Internal Medicine
DX: I82.409 Acute embolism and thrombosis of unspecified deep veins of unspecified lower extremity (principal); I10 Essential (primary) hypertension; E78.5 Hyperlipidemia, unspecified; R79.89 Other specified abnormal findings of blood chemistry

== ENCOUNTER → 2025-04-03 09:10 | Outpatient (BNVA) | payer MEDICARE, MEDICAID, SELFPAY | PROVIDERS: PCP Internal Medicine; Visit Provider Internal Medicine | DX: I10 Essential (primary) hypertension (principal); E78.5 Hyperlipidemia, unspecified; I82.409 Acute embolism and thrombosis of unspecified deep veins of unspecified lower extremity; R79.89 Other specified abnormal findings of blood chemistry | CPT/HCPCS: 99212 ==